=== PATIENT | male | born 1945 | race Caucasian/White ===

== ENCOUNTER 2017-06-03 11:23 | Emergency (ER) | payer OTHER, MEDICARE ==
[~2017-06-03] VITALS: Ht 157.5 cm; Wt 98.0 kg
[~2017-06-03 11:23] MED LIST: ACET-1256 PO; ALL180 PO; ASPI81TA28 PO; CLOP1TAB15 PO; CMD5 PO; CYCL10TA6 PO; ENOX100I SQ; EZET10TA63 PO; LISI-729 PO; METO25TA56 PO; NTRGSLP4 SL; OXYC-57 PO; SIMV40TA2 PO
[2017-06-03 11:26] VITALS: TEMP 36.7; Ht 157.5 cm; Wt 98.0 kg
[2017-06-03] MEDS ORDERED: ONDANSETRON INJ 2 MG/ML 2 ML VIAL IV STA (12:18)
[2017-06-03] MEDS: HYDROmorphone INJ 0.5 MG/0.5 ML SYR IV PRN ×3 (13:00→14:52)
[2017-06-03 13:20] LABS: BASO % 0.1 %; BASO ABS # 0.01 K/uL (0-0.2); EOS % 0.7 %; EOS ABS # 0.05 K/uL (0-0.5); HEMATOCRIT 43.7 % (42-52); HEMOGLOBIN 15.2 g/dL (14.0-18.0); LYMPH % 26.1 %; LYMPH ABS # 1.75 K/uL (1.2-3.4); MEAN CORPUSCULAR HEMOGLOBIN 32.7 pg (25-34); MEAN CORPUSCULAR HGB CONC 34.8 g/dl (32-36); MEAN PLATELET VOLUME 9.9 fL (7.4-10.4); MONO % 8.6 %; MONO ABS # 0.58 K/uL (0.11-0.59); NEUT % 64.5 %; NEUT ABS # 4.32 K/uL (1.4-6.5); PLATELET COUNT 153 K/uL (130-400); RED CELL DISTRIBUTION WIDTH CV 13.5 % (11.5-14.5); RED CELL DISTRIBUTION WIDTH SD 46.1 fL (36.4-46.3); WHITE BLOOD COUNT 6.71 K/uL (4.8-10.8)
[2017-06-03] MEDS ORDERED: INSU1INJ2 SQ (13:32)
[2017-06-03] MEDS ORDERED: NVLGI/PEN SQ ×2 (13:32)
[2017-06-03] MEDS ORDERED: INSDGIPEN SC (13:32)
[2017-06-03] MEDS ORDERED: METF-841 PO (13:32)
[2017-06-03 13:37] LABS: BLOOD UREA NITROGEN 12 mg/dl (7-18); CALCIUM 9.7 mg/dl (8.5-10.1); CARBON DIOXIDE 26 mmol/L (21-32); CREATININE 0.95 mg/dl (0.60-1.40); GLUCOSE 72 mg/dl (70-99); POTASSIUM 3.9 mmol/L (3.5-5.1); SODIUM 137 mmol/L (136-145)
[2017-06-03 13:45] LABS: PTT PATIENT 23.3 SECONDS (21.0-31.0)
--- NOTE | 2017-06-03 18:25 | DIAGNOSTIC IMAGING REPORT ---
MRI OF THE LUMBAR SPINE WITHOUT IV CONTRAST CLINICAL HISTORY: Low back pain. Right lower extremity weakness and numbness. COMPARISON STUDY: Abdominal CT dated 05/22/2014. TECHNIQUE: MRI of the lumbar spine is performed utilizing various T1 and T2-weighted sequences in the axial and sagittal planes. IV contrast was not administered for this examination. The examination is modestly degraded by motion artifact. FINDINGS: Lumbar spine: Marrow signal intensity is heterogeneous. Vertebral body height is maintained throughout the lumbar spine. There is minimal anterolisthesis at L4-L5. Alignment is otherwise preserved. There is no evidence of spondylolysis. No destructive bony lesion is seen. The transverse and spinous processes are intact as imaged. Intervertebral discs: Degenerative disc desiccation is seen throughout the lumbar spine. Mild loss of height is seen at L4-L5. Spinal cord: The visualized spinal cord is normal in morphology and signal intensity. The conus medullaris terminates at L1. The nerve roots of the cauda equina are normal in morphology. L1-L2: Unremarkable. L2-L3: Unremarkable. L3-L4: There is a small posterior disc bulge. This causes mild bilateral subarticular stenosis. The central canal and neural foramina are patent. L4-L5: There is broad-based posterior disc bulge. In conjunction with hypertrophy of the ligamentum flavum there is moderate to severe central canal stenosis at this level. The minimum AP diameter measures 5 mm. There is bilateral subarticular stenosis, with possible impingement on the exiting bilateral L4 and the transiting bilateral L5 nerve roots. L5-S1: There is a small posterior disc bulge. There is no significant acquired compromise of the central canal. Minimal subarticular stenosis is identified. Facet arthropathy causes minimal bilateral neural foraminal stenosis. Sacrum: The visualized sacrum is normal in morphology and signal intensity. Soft tissues: The paraspinous soft tissues are within normal limits. An infrarenal abdominal aortic aneurysm is only partially visualized. This was also seen by CT on 05/22/2014. IMPRESSION: 1. Multilevel lumbosacral spondylosis as above. Disc bulge causes moderate to severe central canal stenosis at L4-L5. See discussion for detailed level by level analysis. 2. No destructive bony process is identified. 3. An infrarenal abdominal aortic aneurysm is partially visualized. This was also seen by CT on 05/22/2014. Dictated: 06/03/2017 6:05 PM Transcribed: 06/03/2017 6:25 PM [email or web address] Electronically signed by: Brijesh Cristina M.D. 06/03/2017 6:28 PM Dictated Date/Time: 06/03/2017 6:05 PM
[2017-06-03] MEDS ORDERED: HYDR-5688 PO (19:12)
[2017-06-03] MEDS ORDERED: NORCO 5/325MG HOME PACK PO ONE (19:15)
[2017-06-03 19:20] VITALS: BP 132/96; PULSE 86; O2SAT 92
--- NOTE | 2017-06-03 21:44 | EMERGENCY ROOM VISIT NOTE ---
History Report prepared by Racheal: Rikki Elise Under the Supervision of: Dr. Bert Perez M.D. First contact with patient: 12:06 Chief Complaint: BACK PAIN Stated Complaint: BACK PAIN History of Present Illness The patient is a 71 year old male who presents to the Emergency Room with complaints of worsening lower right back pain that began 3 days prior to arrival. The patient rates his current pain as a 8/10 in severity and notes that it is disrupting his sleep and ability to walk. He cannot get comfortable laying down, sitting, or standing. The most of his pain is down his right leg and right at the "bottom of his spine." He describes the feeling in his right lower extremity as his leg "being ." He denies any recent falls or traumatic accidents that could have exacerbated the pain. He is not on Coumadin any longer. The patient also denies LOC, headache, fevers, chills, diaphoresis, visual changes, neck pain, chest pain, breathing difficulties, nausea, vomiting , abdominal pain, melena, hematochezia, urinary symptoms, numbness, weakness, lymphadenopathy, rash, or other complaints. He has had MRI imaging before without issue. He has a history of coronary artery disease, diabetes, and deep vein thrombosis. Source of History: patient Onset: 3 days [employer] Position: back (lower) Symptom Intensity: 8/10 Timing: worsening Associated Symptoms: No chest pain, No abdominal pain Note: Right lower extremity Review of Systems See HPI for pertinent positives and negatives. A total of ten systems were reviewed and were otherwise negative. Past Medical & Surgical Medical Problems: (1) AAA (abdominal aortic aneurysm) (2) Dyslipidemia (3) Heart disease (4) HTN (hypertension) (5) SD (myocardial infarction) Surgical Problems: (1) History of heart artery stent (2) multiple cardiac stents Family History Diabetes mellitus Hypertension Social History Smoking Status: Unknown if Ever Smoked Marital Status: Housing Status: lives with significant other Current/Historical Medications Scheduled Aspirin (Aspirin Ec), 81 MG PO QAM Clopidogrel (Plavix), 75 MG PO QAM Fexofenadine HCl (Fexofenadine HCl), 180 MG PO QAM Insulin Aspart (Novolog Flexpen), 6 SQ QAM Insulin Aspart (Novolog Flexpen), 10 SQ 1200 Insulin Aspart (Novolog Penfill), 8 SQ 2300 Insulin Glargine (Lantus Solostar), 18 SC HS Lisinopril (Zestril), 5 MG PO QAM Metformin HCl (Metformin HCl ER), 1 TAB PO BID Metoprolol Tartrate (Lopressor) (Lopressor), 12.5 MG PO BID Nitroglycerin (Nitrostat), 0.4 MG SL PRN Simvastatin (Zocor), 40 MG PO QPM Scheduled PRN Acetaminophen (Tylenol), 1,000 MG PO HS PRN for Pain Hydrocodone/Acetaminophen 5MG/325MG ([place] 5MG/325MG), 1-2 TABS PO Q6H PRN for Pain Allergies Coded Allergies: No Known Allergies (Unverified , 06/03/17) Physical Exam Vital Signs Date Time Temp Pulse Resp B/P (MAP) Pulse Ox O2 Delivery O2 Flow Rate FiO2 06/03/17 19:20 86 18 132/96 92 06/03/17 18:10 62 21 158/81 91 Room Air 06/03/17 16:45 62 18 162/80 91 Room Air 06/03/17 14:30 56 20 119/64 95 Nasal Cannula 2.0 06/03/17 13:33 70 18 140/80 90 Room Air 06/03/17 13:03 72 183/86 91 Room Air 06/03/17 11:26 36.7 78 18 205/83 95 Room Air Physical Exam GENERAL: Awake, alert, well-appearing, in no acute distress HENT: Normocephalic, atraumatic. Oropharynx unremarkable. EYES: Normal conjunctiva. Sclera non-icteric. NECK: Supple. No nuchal rigidity. FROM. No JVD. RESPIRATORY: Clear to auscultation. CARDIAC: Regular rate, normal rhythm. Extremities warm and well perfused. Pulses equal. ABDOMEN: Soft, non-distended. No tenderness to palpation. No rebound or guarding. No masses. RECTAL: Deferred. MUSCULOSKELETAL: There is slight EHL weakness on the right side. Chest examination reveals no tenderness. The back is symmetrical on inspection without obvious abnormality. No joint edema. LOWER EXTREMITIES: Calves are equal size bilaterally and non-tender. No edema. No discoloration. NEURO: Normal sensorium. No sensory or motor deficits noted. There is slight EHL weakness on the right side. No saddle paresthesia. Reflexes were diminished bilaterally. SKIN: No rash or jaundice noted. Medical Decision & Procedures ER Provider Diagnostic Interpretation: Radiology results as stated below per my review and radiologist interpretation: MRI OF THE LUMBAR SPINE WITHOUT IV CONTRAST CLINICAL HISTORY: Low back pain. Right lower extremity weakness and numbness. COMPARISON STUDY: Abdominal CT dated 05/22/2014. TECHNIQUE: MRI of the lumbar spine is performed utilizing various T1 and T2-weighted sequences in the axial and sagittal planes. IV contrast was not administered for this examination. The examination is modestly degraded by motion artifact. FINDINGS: Lumbar spine: Marrow signal intensity is heterogeneous. Vertebral body height is maintained throughout the lumbar spine. There is minimal anterolisthesis at L4-L5. Alignment is otherwise preserved. There is no evidence of spondylolysis. No destructive bony lesion is seen. The transverse and spinous processes are intact as imaged. Intervertebral discs: Degenerative disc desiccation is seen throughout the lumbar spine. Mild loss of height is seen at L4-L5. Spinal cord: The visualized spinal cord is normal in morphology and signal intensity. The conus medullaris terminates at L1. The nerve roots of the cauda equina are normal in morphology. L1-L2: Unremarkable. L2-L3: Unremarkable. L3-L4: There is a small posterior disc bulge. This causes mild bilateral subarticular stenosis. The central canal and neural foramina are patent. L4-L5: There is broad-based posterior disc bulge. In conjunction with hypertrophy of the ligamentum flavum there is moderate to severe central canal stenosis at this level. The minimum AP diameter measures 5 mm. There is bilateral subarticular stenosis, with possible impingement on the exiting bilateral L4 and the transiting bilateral L5 nerve roots. L5-S1: There is a small posterior disc bulge. There is no significant acquired compromise of the central canal. Minimal subarticular stenosis is identified. Facet arthropathy causes minimal bilateral neural foraminal stenosis. Sacrum: The visualized sacrum is normal in morphology and signal intensity. Soft tissues: The paraspinous soft tissues are within normal limits. An infrarenal abdominal aortic aneurysm is only partially visualized. This was also seen by CT on 05/22/2014. IMPRESSION: 1. Multilevel lumbosacral spondylosis as above. Disc bulge causes moderate to severe central canal stenosis at L4-L5. See discussion for detailed level by level analysis. 2. No destructive bony process is identified. 3. An infrarenal abdominal aortic aneurysm is partially visualized. This was also seen by CT on 05/22/2014. Dictated: 06/03/2017 6:05 PM Transcribed: 06/03/2017 6:25 PM [email or web address] Electronically signed by: Brijesh Cristina M.D. 06/03/2017 6:28 PM Dictated Date/Time: 06/03/2017 6:05 PM Laboratory Results 06/03/17 13:00 Red Blood Count 4.65, Mean Corpuscular Volume 94.0, Mean Corpuscular Hemoglobin 32.7, Mean Corpuscular Hemoglobin Concent 34.8, Mean Platelet Volume 9.9, Neutrophils (%) (Auto) 64.5, Lymphocytes (%) (Auto) 26.1, Monocytes (%) (Auto) 8.6, Eosinophils (%) (Auto) 0.7, Basophils (%) (Auto) 0.1, Neutrophils # (Auto) 4.32, Lymphocytes # (Auto) 1.75, Monocytes # (Auto) 0.58, Eosinophils # (Auto) 0.05, Basophils # (Auto) 0.01 06/03/17 13:00 Test 06/03/17 13:00 White Blood Count 6.71 K/uL (4.8-10.8) Red Blood Count 4.65 M/uL (4.7-6.1) Hemoglobin 15.2 g/dL (14.0-18.0) Hematocrit 43.7 % (42-52) Mean Corpuscular Volume 94.0 fL (80-100) Mean Corpuscular Hemoglobin 32.7 pg (25-34) Mean Corpuscular Hemoglobin Concent 34.8 g/dl (32-36) Platelet Count 153 K/uL (130-400) Mean Platelet Volume 9.9 fL (7.4-10.4) Neutrophils (%) (Auto) 64.5 % Lymphocytes (%) (Auto) 26.1 % Monocytes (%) (Auto) 8.6 % Eosinophils (%) (Auto) 0.7 % Basophils (%) (Auto) 0.1 % Neutrophils # (Auto) 4.32 K/uL (1.4-6.5) Lymphocytes # (Auto) 1.75 K/uL (1.2-3.4) Monocytes # (Auto) 0.58 K/uL (0.11-0.59) Eosinophils # (Auto) 0.05 K/uL (0-0.5) Basophils # (Auto) 0.01 K/uL (0-0.2) RDW Standard Deviation 46.1 fL (36.4-46.3) RDW Coefficient of Variation 13.5 % (11.5-14.5) Immature Granulocyte % (Auto) 0.0 % Immature Granulocyte # (Auto) 0.00 K/uL (0.00-0.02) Erythrocyte Sedimentation Rate 26 mm/hr (0-14) Prothrombin Time 10.6 SECONDS (9.0-12.0) Prothromb Time International Ratio 1.0 (0.9-1.1) Activated Partial Thromboplast Time 23.3 SECONDS (21.0-31.0) Partial Thromboplastin Ratio 0.9 Anion Gap 7.0 mmol/L (3-11) Est Creatinine Clear Calc Drug Dose 74.7 ml/min Estimated GFR () 94.3 Estimated GFR (Non- 81.3 BUN/Creatinine Ratio 12.6 (10-20) Calcium Level 9.7 mg/dl (8.5-10.1) C-Reactive Protein < 0.29 mg/dl (0-0.29) Laboratory results reviewed by me Medications Administered Medications (Trade) Dose Ordered Sig/Lucius Route Start Time Stop Time Status Last Admin Dose Admin Hydromorphone HCl (Dilaudid Inj) 0.5 mg Q15M PRN IV 06/03/17 12:30 06/03/17 21:02 DC 06/03/17 14:52 0.5 MG Ondansetron HCl (Zofran Inj) 4 mg NOW STAT IV 06/03/17 12:18 06/03/17 12:20 DC 06/03/17 12:59 4 MG ED Course 1213: The patient was evaluated in room B11B. A complete history and physical exam was performed. 1218: Ordered Zofran 4 mg IV. 1230: Ordered Dilaudid Inj 0.5 mg IV. 1415: I checked on the patient at this time. He is feeling better. 1906: I reevaluated the patient. Discussed results and discharge instructions: He verbalized understanding and agreement. The patient is ready for discharge. 1915: Ordered Hydrocodone 1 homepack PO. Medical Decision Prior records/ancillary studies reviewed. Triage Nursing notes reviewed and agree them. Additional history obtained from the family. The patient's history was concerning for back pain. Differential diagnosis: Etiologies such as herniated disc, sciatica, cauda equina,fracture, aortic disease, metastatic disease, cord compression, discitis, infection, renal colic , gastrointestinal, lumbago, as well as others were entertained. Physical findings: Patient was evaluated. He had a benign abdomen. No saddle anesthesia however he did have weakness on the right side. ER treatment provided: IV Zofran IV Dilaudid On reassessment the patient felt better. Diagnostics interpreted by me: The labs revealed an unremarkable CBC and chemistry panel. ESR is mildly elevated. Imaging studies: MRI as above. Significant disc herniation present. The patient has a concerning medical history. He had a benign abdomen. He did have weakness on the right side. Given his age and comorbidities MR imaging was felt to be most appropriate to elucidate the cause of the patient's radicular back pain. After receiving IV Dilaudid the patient was comfortable. He underwent imaging and this revealed the findings as above. He has a known abdominal aortic aneurysm and has no abdominal symptoms at this time. I do not suspect the aorta is the current cause of his symptoms as they are radicular and not really isolated to the back and there are no abdominal complaints. He' s had this current episode going on for several days. He is finally comfortable. Given the fact that is diabetic steroids would be difficult to use as he would likely experience hyperglycemia. Prescription narcotic analgesia was discussed. Referral to orthopedic spine as well as his primary physician was discussed. The patient was hypertensive at first but this improved after pain control. The patient and his felt comfortable with the plan.I gave my usual and customary discussion regarding this issue. By the evaluation outlined above emergent etiologies such as fracture, aortic disease, metastatic disease, infection, renal colic, gastrointestinal, cord compression, cauda equina, as well as others were deemed relatively unlikely. The patient and were informed about the findings as listed above. All questions were answered and they were pleased with the treatment. Return instructions were outlined and the patient was discharged in stable condition. Outpatient prescription management: [place] Referral: The patient was referred back to primary care physician as well as orthopedic spine. 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 I confirm that the note above accurately reflects all work, treatment, procedures, and medical decision making performed by me. Departure Information Dispostion Home / Self-Care Prescriptions Hydrocodone/Acetaminophen 5MG/325MG ([place] 5MG/325MG) Tab 1-2 TABS PO Q6H Y for Pain, #20 TAB Prov: Bert Perez MD 06/03/17 Forms HOME CARE DOCUMENTATION FORM, IMPORTANT VISIT INFORMATION Patient Instructions [facility] Additional Instructions DO NOT drive, drink alcohol, operate machinery, or perform dangerous activities today. You were given medications in the ER that can affect your ability to safely function or operate a vehicle. Hydrocodone/acetaminophen 5/325mg: Take 1-2 pills every 6 hours as needed for pain. Avoid additional Acetaminophen/Tylenol, alcohol, operating machinery or dangerous equipment, working on ladders or roofs, DRIVING, or situations where being under the influence may be dangerous. It is recommended to use a stool softener such as Colace, 100mg twice daily while taking this medication to avoid constipation. Rest and avoid heavy lifting until your symptoms resolve and then gradually return to full activity. A good rule of thumb is if it hurts your back to perform a certain activity, then it should be avoided until you are healthy again. A heating pad, warm compresses, or a hot shower may help with tight muscles and can be done several times a day as needed. Continue current medications. Return to the ER immediately for any numbness, tingling, severe pain, loss of control of your bowels or bladder, inability to walk, or as needed. Follow-up with orthopedic spine as noted below. The number is listed under Dr. Cage. Call the office tomorrow and let them know your referral from the Emergency Room. Follow up with your primary care physician within 3-5 days for a recheck of your current condition guarding her blood pressure. Problem Qualifiers
== END 2017-06-03 19:15 | disposition home or self-care (01) ==
LOC: C.EDB 11:24
DX: M51.16 Intervertebral disc disorders with radiculopathy, lumbar region (principal); I25.10 Atherosclerotic heart disease of native coronary artery without angina pectoris; E11.9 Type 2 diabetes mellitus without complications; Z86.718 Personal history of other venous thrombosis and embolism; E78.5 Hyperlipidemia, unspecified; I10 Essential (primary) hypertension; I25.2 Old myocardial infarction; Z95.5 Presence of coronary angioplasty implant and graft; Z83.3 Family history of diabetes mellitus; Z82.49 Family history of ischemic heart disease and other diseases of the circulatory system; Z79.82 Long term (current) use of aspirin; Z79.01 Long term (current) use of anticoagulants; Z79.4 Long term (current) use of insulin; Z79.899 Other long term (current) drug therapy; I71.4 Abdominal aortic aneurysm, without rupture

== ENCOUNTER 2021-05-29 13:59 | Observation (INO) ==
[2021-05-29 14:34] LABS: Hematocrit (blood only) 35.6 % (42-52); Hemoglobin 11.9 g/dL (14.0-18.0); Mean Corpuscular Hemoglobin 32.4 pg (25-34); Mean Corpuscular Hgb Conc 33.4 g/dL (32-36); Mean Platelet Volume 9.5 fL (7.4-10.4); Platelet Count 113 K/uL (130-400); RDW Coefficient of Variation 13.6 % (11.5-14.5); RDW Standard Deviation 48.7 fL (36.4-46.3); Red Blood Count 3.67 M/uL (4.7-6.1); White Blood Count 8.87 K/uL (4.8-10.8)
--- NOTE | 2021-05-29 14:44 | CT Scan Report ---
CT SCAN OF THE BRAIN WITHOUT IV CONTRAST CLINICAL HISTORY: Strokelike symptoms. COMPARISON STUDY: No priors. TECHNIQUE: Unenhanced axial CT scan of the brain is performed from the vertex to the skull base. A do se lowering technique was utilized adhering to the principles of ALARA. CT DOSE: 823.94 mGycm FINDINGS: Brain parenchyma: There are age-related involutional changes noting mild subcortical and periventric ular microangiopathic change. There is no hemorrhage, mass effect, or evidence of acute territorial i schemia by CT criteria. Crook-white matter differentiation is preserved. No extra-axial fluid collecti on is seen. Ventricles, sulci, cisterns: Prominent secondary to involutional change. Intracranial vasculature: There is atherosclerotic calcification of the cavernous carotid and vertebr al arteries. Calvarium: Unremarkable. Sinuses and mastoids: There is subtotal opacification of the right sphenoid sinus. The remaining para nasal sinuses are clear. The mastoid air cells are well pneumatized. Orbits: The bony orbits are grossly intact. IMPRESSION: There is no hemorrhage, mass effect, or evidence of acute territorial ischemia by CT erickson palmer. ACT 112: Negative or not required by law. Electronically signed by: Brijesh Cristina M.D. 05/29/2021 2:43 PM
[2021-05-29 15:00] LABS: Albumin Globulin Ratio 1.2 (0.9-2); Albumin Level 3.8 gm/dl (3.4-5.0); BUN Creatinine Ratio 23.7 (10-20); Bilirubin,Total 0.6 mg/dl (0.2-1.0); Calcium 8.4 mg/dl (8.5-10.1); Creatinine Clr Calc Pharmacy 76.4 ml/min; Est GFR (African American) 94.1 ml/min; Est GFR (Non-African American) 81.2 ml/min; Globulin 3.3 gm/dl (2.5-4.0); Magnesium 1.7 mg/dl (1.7-2.4); Potassium 3.9 mmol/L (3.5-5.1); Total Protein 7.1 gm/dl (6.0-8.3)
--- NOTE | 2021-05-29 16:22 | Emergency Department Note ---
Impression & Plan Visual hallucinations, Hypertensive urgency, S/P AAA repair ED Provider Note NAME: MASSIMO RAMOS AGE: 75 SEX: M ARRIVES VIA: Walk-In INFORMANT: Patient ED PROVIDER(S): Tawanda Corrigan MD CHIEF COMPLAINT: Visual hallucinations PLAN: Disposition: Admit MEDICAL DECISION MAKING: The patient is a pleasant 74-year-old gentleman with a past medical history of IDDM 2, hypertension, hyperlipidemia, AAA who is status post AAA repair 2 days ago at [facility] [place] who presents emergency department, by his daughter for evaluation of visual hallucinations which he began experience around 830 this morning. The patient describes the episodes as brief seconds of an injury that occurs when he closes his eyes. The imagery ranges from seeing rabbits running out of the snow to seeing "launch codes". The patient's daughter reports that he is otherwise acting normally and denies any confusion or abnormal behaviors. They deny any history of regular alcohol use. He reports he chews tobacco. They deny any fevers, chills, cough, congestion, GI or symptoms. He reports he has a scheduled stress test approximately 10 days from now which was scheduled by his PCP who is aware of his surgery but the plan was to have this done due to his elevated blood pressure which is chronic. He reports he was unaware of any strict range where he should maintain his blood pressure related to his recent AAA repair. He does report that he takes his medication normally as scheduled and has not missed any doses. On arrival the patient is well-appearing in no acute distress, afebrile. His initial blood pressure on arrival was elevated in the 230s/80s but did decline somewhat to the 190s/90s without intervention. He appears clinically dry. He has no objective focal neurologic deficits. EKG without overt acute ischemia. CT of the head was negative for acute process. WBC within normal limits. H/H 11.9/35.6 and platelets 113K without recent values for comparison. Chemistry without metabolic acidosis. Electrolytes without significant abnormalities. LFTs without significant abnormalities. UA without convincing evidence of infection. Given the patient's neurologic symptoms of visual hallucinations the setting of his recent AAA repair, CVA is within the differential. Additionally, given the patient's elevated blood pressure, hypertensive encephalopathy is also considered. The patient and his daughter at the bedside did agree with plan for admission given his symptoms and possible etiology. MRI of the brain with and without contrast was ordered. Given Stroke on DDX will defer acute BP management pending MRI results, per admitting team. Resident, Dr. Luis, reviewed the case with Case was discussed with Gatito Humphrey, with Dr. Erum hogue hospitalist who will evaluate the patient for admission. This patient was managed with the assistance of resident, Dr. Luis. I discussed the case with the resident, examined the patient, and confirm the findings and plan as documented in this note. Triage Nursing notes reviewed and agree them. Prior medical records reviewed Vital Signs: reviewed and remarkable for hypertension. Differential diagnosis: Infection, dehydration, metabolic abnormality, hypo/hyperglycemia, electrolyte disturbance, anemia, hypoxia, cardiac sources, intracerebral event, toxicologic, neurologic, as well as other pathologies. ER treatment provided: See below. Diagnostics interpreted by me: ECG: Sinus rhythm with first-degree AV block, 68 bpm, no ectopy, incomplete right bundle branch block, no overt ST elevation or depression, QTC 416, QRS 94. Cardiac Monitoring: An order for continuous cardiac monitoring was placed and demonstrated sinus rhythm with first-degree AV block, 68 bpm, no ectopy Laboratory studies: See below Imaging studies: See below Consultation(s): Gatito Humphrey, with Dr. Erum Mederos hospitalist. HPI: The patient is a pleasant 74-year-old gentleman with a past medical history of IDDM 2, hypertension, hyperlipidemia, AAA who is status post AAA repair 2 day s ago at [facility] [place] who presents emergency department, by his daughter for evaluation of visual hallucinations which he began experience around 830 this morning. The patient describes the episodes as brief seconds of an injury that occurs when he closes his eyes. The imagery ranges from seeing rabbits running out of the snow to seeing "launch codes". The patient's daughter reports that he is otherwise acting normally and denies any confusion or abnormal behaviors. They deny any history of regular alcohol use. He reports he chews tobacco. They deny any fevers, chills, cough, congestion, GI or symptoms. He reports he has a scheduled stress test approximately 10 days from now which was scheduled by his PCP who is aware of his surgery but the plan was to have this done due to his elevated blood pressure which is chronic. He reports he was unaware of any strict range where he should maintain his blood pressure related to his recent AAA repair. He does report that he takes his medication normally as scheduled and has not missed any doses. ROS: See above HPI for pertinent positives & negatives. A total of 10 systems reviewed and were otherwise negative. PAST MEDICAL HISTORY:See Below PAST SURGICAL HISTORY:See Below FAMILY HISTORY:See Below SOCIAL HISTORY:See Below HOME MEDICATIONS:See Below ALLERGIES:See Below VITALS:See Below PHYSICAL EXAMINATION: GENERAL: Awake, alert, well-appearing, in no distress, BMI 43.9. HENT: Normocephalic, atraumatic. Oropharynx with dry mucous membranes and otherwise unremarkable. EYES: Normal conjunctiva. Sclera non-icteric. EOMI. No nystamgus. PEARRL. NECK: Supple. No nuchal rigidity. FROM. No JVD. RESPIRATORY: Clear to auscultation. CARDIAC: Regular rate, normal rhythm. Extremities warm and well perfused. Pulses equal. ABDOMEN: Soft, non-distended. No tenderness to palpation. No rebound or guarding. No masses. RECTAL: Deferred. MUSCULOSKELETAL: Chest examination reveals no tenderness. The back is sy mmetrical on inspection without obvious abnormality. There is no CVA tenderness to palpation. No joint edema. LOWER EXTREMITIES: Calves are equal size bilaterally and non-tender. No edema. No discoloration. NEURO: Normal sensorium. No sensory or motor deficits noted. Speech is fluent. CNII-XII grossly intact. 5/5 strength and SILT x 4 extremities. Cerebellar function intact including [id number], alternating palms, [id number]. SKIN: No rash or jaundice noted. Tawanda Corrigan MD Past Med/Surg History Medical History AAA (abdominal aortic aneurysm) Carotid stenosis Dyslipidemia History of pulmonary embolism HTN (hypertension) NM (myocardial infarction) PAD (peripheral artery disease) Pneumoconiosis Pulmonary embolism Pulmonary nodule seen on imaging study Silicosis Type 2 diabetes mellitus Surgical History History of AAA (abdominal aortic aneurysm) repair Repair in 2017 with subsequent type 2 endoleak that was repaired in May 2021 History of cardiac cath 2009 - stents History of carotid endarterectomy History of heart artery stent Family History Other Cancer Diabetes Heart disease Stroke Social History Smoking Status: Former smoker Tobacco Type: Cigarettes Second Hand Exposure: No; Do You Dip or Chew Tobacco: Yes; Tobacco Cessation Education Requested by Patient: No Hx Alcohol Use: No Hx Substance Use: No Preferred Language: Bolivian Communication Ability: Effective Narcotics And/Or Vice Detective Required: No Beliefs That Will Affect Care: None marital status: Current Living Situation: Spouse Other Information That Helps Us Care for You: No Feels Safe at Home: Yes Safety Concerns: Feels Safe At This Time Assistive Devices: Hearing Aid - Bilateral Allergies Allergies Allergy/AdvReac Type Severity Reaction Status Date / Time pollen extracts Allergy Unknown Verified 05/29/21 16:12 sitagliptin Allergy Unknown Verified 05/29/21 16:12 Home Meds Home Medications Medication Instructions Recorded Confirmed aspirin 81 mg tablet,delayed 81 mg PO DAILY 07/14/19 05/29/21 release atorvastatin 40 mg tablet (Lipitor) 40 mg PO DAILY 07/14/19 05/29/21 clopidogrel 75 mg tablet (Plavix) 75 mg PO DAILY 07/14/19 05/29/21 fexofenadine 180 mg tablet 180 mg PO QAM PRN 07/14/19 05/29/21 (Eugenia Allergy) insulin aspart U-100 100 unit/mL 11 unit SUBCUT QDB 07/14/19 05/29/21 (3 mL) subcutaneous pen (Novolog Flexpen U-100 Insulin aspart) insulin aspart U-100 100 unit/mL 14 unit SUBCUT QDD 07/14/19 05/29/21 (3 mL) subcutaneous pen (Novolog Flexpen U-100 Insulin aspart) insulin aspart U-100 100 unit/mL 20 unit SUBCUT QDL 07/14/19 05/29/21 (3 mL) subcutaneous pen (Novolog Flexpen U-100 Insulin aspart) insulin glargine 100 unit/mL (3 35 unit SUBCUT HS 07/14/19 05/29/21 mL) subcutaneous pen (Basaglar KwikPen U-100 Insulin) metoprolol tartrate 25 mg tablet 12.5 mg PO BID 07/14/19 05/29/21 nitroglycerin 0.4 mg sublingual 0.4 mg SUBLINGUAL Q5M PRN MDD 1.2 07/14/19 05/29/21 tablet (Nitrostat) mg hydrochlorothiazide 12.5 mg capsule 12.5 mg PO DAILY 05/29/21 05/29/21 lisinopril 40 mg tablet 40 mg PO DAILY 05/29/21 05/29/21 metformin 1,000 mg tablet 1,000 mg PO BID 05/29/21 05/29/21 Results & Data (ED) Vital Signs Vital Signs - 24 hr 05/29/21 14:01 05/29/21 15:55 05/29/21 15:58 Temperature 36.5 C Temperature Source Temporal Artery Scan Pulse Rate 73 Pulse Rate [Apical] 68 Pulse Rhythm [Apical] Respiratory Rate 18 18 Respiratory Effort / Characteristics Non-Labored Non-Labored Respiratory Depth Normal Blood Pressure 236/85 H Blood Pressure [Left Arm] 170/71 H Blood Pressure Mean 135 Blood Pressure Mean [Left Arm] 104 Pulse Oximetry 93 94 93 Oxygen Delivery Method Room Air Room Air Room Air Oxygen Flow Rate 0 Sepsis Recent Fever Within 48 Hours No Sepsis New/Unexplained Change in Mental Status No Sepsis Action Taken by Nursing No Action Required 05/29/21 17:00 Temperature Temperature Source Pulse Rate Pulse Rate [Apical] 67 Pulse Rhythm [Apical] Regular Respiratory Rate 26 H Respiratory Effort / Characteristics Non-Labored Respiratory Depth Blood Pressure Blood Pressure [Left Arm] 194/90 H Blood Pressure Mean Blood Pressure Mean [Left Arm] 124 Pulse Oximetry 94 Oxygen Delivery Method Room Air Oxygen Flow Rate Sepsis Recent Fever Within 48 Hours Sepsis New/Unexplained Change in Mental Status Sepsis Action Taken by Nursing Laboratory Data Attestation: I reviewed the patient's lab results. Result diagrams: 05/29/21 14:20 05/29/21 14:20 Lab Results 05/29/21 05/29/21 05/29/21 Range/Units 14:20 14:20 14:20 WBC 8.87 (4.8-10.8) K/uL RBC 3.67 L (4.7-6.1) M/uL Hgb 11.9 L (14.0-18.0) g/dL Hct 35.6 L (42-52) % MCV 97.0 (80-100) fL MCH 32.4 (25-34) pg MCHC 33.4 (32-36) g/dL RDW Std Deviation 48.7 H (36.4-46.3) fL RDW Coeff of Humberto 13.6 (11.5-14.5) % Plt Count 113 L (130-400) K/uL MPV 9.5 (7.4-10.4) fL PT Cancelled INR Cancelled APTT Cancelled PTT Ratio Cancelled Sodium 131 L (136-145) mmol/L Potassium 3.9 (3.5-5.1) mmol/L Chloride 99 (98-107) mmol/L Carbon Dioxide 24 (21-32) mmol/L Anion Gap 8 (3-11) BUN 22 (6-23) mg/dl Creatinine 0.93 (0.6-1.4) mg/dl Est Cr Clr Drug Dosing 76.4 ml/min Est GFR ( Amer) 94.1 ml/min Est GFR (Non-Af Amer) 81.2 ml/min BUN/Creatinine Ratio 23.7 H (10-20) Glucose 161 H (70-99) mg/dl POC Glucose (70-99) mg/dl Calcium 8.4 L (8.5-10.1) mg/dl Magnesium 1.7 (1.7-2.4) mg/dl Total Bilirubin 0.6 (0.2-1.0) mg/dl AST 44 H (13-39) U/L ALT 31 (7-52) U/L Alkaline Phosphatase 99 (34-104) U/L Total Protein 7.1 (6.0-8.3) gm/dl Albumin 3.8 (3.4-5.0) gm/dl Globulin 3.3 (2.5-4.0) gm/dl Albumin/Globulin Ratio 1.2 (0.9-2) Urine Color Urine Appearance (Clear) Urine pH (4.5-7.5) Ur Specific [place] (1.000-1.030) Urine Protein (Negative) Urine Glucose (UA) (Negative) Urine Ketones (Negative) Urine Blood (Negative) Urine Nitrite (Negative) Urine Bilirubin (Negative) Urine Urobilinogen (Negative) Ur Leukocyte Esterase (Negative) Urine WBC (Auto) (0-5) /hpf Urine RBC (Auto) (0-4) /hpf U Hyaline Cast (Auto) (0-5) /lpf U Epithel Cells (Auto) (0-5) /lpf Urine Bacteria (Auto) (Negative) 05/29/21 05/29/21 Range/Units 16:03 17:07 WBC (4.8-10.8) K/uL RBC (4.7-6.1) M/uL Hgb (14.0-18.0) g/dL Hct (42-52) % MCV (80-100) fL MCH (25-34) pg MCHC (32-36) g/dL RDW Std Deviation (36.4-46.3) fL RDW Coeff of Humberto (11.5-14.5) % Plt Count (130-400) K/uL MPV (7.4-10.4) fL PT INR APTT PTT Ratio Sodium (136-145) mmol/L Potassium (3.5-5.1) mmol/L Chloride (98-107) mmol/L Carbon Dioxide (21-32) mmol/L Anion Gap (3-11) BUN (6-23) mg/dl Creatinine (0.6-1.4) mg/dl Est Cr Clr Drug Dosing ml/min Est GFR ( Amer) ml/min Est GFR (Non-Af Amer) ml/min BUN/Creatinine Ratio (10-20) Glucose (70-99) mg/dl POC Glucose 149 H (70-99) mg/dl Calcium (8.5-10.1) mg/dl Magnesium (1.7-2.4) mg/dl Total Bilirubin (0.2-1.0) mg/dl AST (13-39) U/L ALT (7-52) U/L Alkaline Phosphatase (34-104) U/L Total Protein (6.0-8.3) gm/dl Albumin (3.4-5.0) gm/dl Globulin (2.5-4.0) gm/dl Albumin/Globulin Ratio (0.9-2) Urine Color Yellow Urine Appearance Clear (Clear) Urine pH 7.0 (4.5-7.5) Ur Specific [place] 1.006 (1.000-1.030) Urine Protein Trace H (Negative) Urine Glucose (UA) Negative (Negative) Urine Ketones Negative (Negative) Urine Blood 1+ H (Negative) Urine Nitrite Negative (Negative) Urine Bilirubin Negative (Negative) Urine Urobilinogen Negative (Negative) Ur Leukocyte Esterase Negative (Negative) Urine WBC (Auto) 1-5 (0-5) /hpf Urine RBC (Auto) 0-4 (0-4) /hpf U Hyaline Cast (Auto) 0 (0-5) /lpf U Epithel Cells (Auto) 5-10 H (0-5) /lpf Urine Bacteria (Auto) Negative (Negative) Administered Medications Acetaminophen (Acetaminophen 500 Mg Tab) 1,000 mg PO Q6H PRN PRN Reason: Pain Stop: 06/28/21 18:21 Last Admin: 05/30/21 03:53 Dose: 1,000 mg Documented by: [id number] Admin: 05/29/21 19:25 Dose: 1,000 mg Documented by: [id number] Insulin Aspart (Insulin Aspart Per Unit) 0 units SC ACHS DESEAN Stop: 06/28/21 20:59 Last Admin: 05/29/21 22:03 Dose: Not Given Documented by: [id number] Cosigned by: [id number] Insulin Glargine (Insulin Glargine Solostar 100 Units/Ml 3 Ml Pen) 25 units SC HS DESEAN Stop: 06/28/21 20:59 Last Admin: 05/29/21 21:43 Dose: 25 units Documented by: [id number] Cosigned by: [id number] Metoprolol Tartrate (Metoprolol Tartrate 25 Mg Tab) 12.5 mg PO BID DESEAN Stop: 06/28/21 20:59 Last Admin: 05/29/21 21:38 Dose: 12.5 mg Documented by: [id number] Discontinued Medications Gadobutrol (Gadobutrol 65ml Vial) 10.5 ml IV ONCE ONE Stop: 05/29/21 18:52 Last Admin: 05/29/21 18:51 Dose: 10.5 ml Documented by: [id number] Hydrochlorothiazide (Hydrochlorothiazide 25 Mg Tab) 12.5 mg PO NOW STA Stop: 05/29/21 19:27 Last Admin: 05/29/21 19:33 Dose: 12.5 mg Documented by: [id number] Sodium Chloride (Nss) 500 mls @ 125 mls/hr IV .Q4H ONE Stop: 05/29/21 21:20 Last Infusion: 05/29/21 22:02 Dose: 0 mls/hr Documented by: [id number] Admin: 05/29/21 17:27 Dose: 125 mls/hr Documented by: [id number] Labetalol HCl (Labetalol Hcl Iv 5 Mg/Ml 20ml) 10 mg IV NOW STA Stop: 05/29/21 19:48 Last Admin: 05/29/21 21:01 Dose: Not Given Documented by: [id number] Labetalol HCl (Labetalol Hcl Iv 5 Mg/Ml 20ml) 10 mg IV NOW STA Stop: 05/29/21 19:50 Last Admin: 05/29/21 20:13 Dose: 10 mg Documented by: [id number] Cosigned by: [id number] Imaging Data Radiologist's Impression: Brain MRI 05/29/21 16:34 MRI OF THE BRAIN COMBO CLINICAL HISTORY: Visual changes. Recent surgery. COMPARISON STUDY: CT of the brain dated 05/29/2021. TECHNIQUE: MRI of the brain was performed utilizing various T1 and T2-weighted sequences in the axial, sagittal, and coronal planes. Contrast-enhanced sequences were acquired following the administration of 10.5 cc of Gadavist. The examination is modestly degraded by motion artifact. FINDINGS: Brain parenchyma: There is age-related involutional change noting minimal microangiopathic disease. There is no hemorrhage or mass effect. There is no restricted diffusion to suggest acute ischemia. No enhancing mass lesion is identified on the postcontrast images. Crook-white matter differentiation is preserved. No extra-axial fluid collection is seen. The cerebellar tonsils are normal in configuration. Ventricles, sulci, and cisterns: Prominent secondary to involutional change. Pituitary and sella: Partially empty sella is incidentally noted. Intracranial vasculature: Normal flow voids are maintained at the skull base. Orbits: The bony orbits are grossly intact. Orbital contents are normal in appearance. Sinuses and mastoids: There is mucosal thickening within the right sphenoid sinus. The remaining paranasal sinuses appear clear. The mastoid air cells are well pneumatized. Calvarium: Unremarkable. Cervical cord: Partially visualized cervical spinal cord is normal in morphology and signal intensity. IMPRESSION: No acute intracranial abnormality. ACT 112: Negative or not required by law. Electronically signed by: Brijesh Cristina M.D. 05/29/2021 7:08 PM Discharge Plan Visit Data Chief Complaint: Neuro Symptoms/Deficit Stated Complaint: POST SURGERY, SEEING THINGS WHEN EYES ARE CLOSED ED Provider: Tawanda Corrigan ED Midlevel Provider: Tracee Luis Discharge Problem: Visual hallucinations, Hypertensive urgency, S/P AAA repair Patient Disposition: Admitted As Inpatient Discharge Instructions Interventions: ED Discharge Assessment Last Done: 05/29/21 20:46
--- NOTE | 2021-05-29 16:56 | Emergency Department Note ---
ED Visit Note This patient was seen in concert with Dr. Corrigan and we discussed and agreed upon the history, physical, assessment and plan. See attending's note for details. . Resident Activity Tracking Resident Involvement: Resident Care Provided Care Provided: Adult ED
[2021-05-29] MEDS ORDERED: SODIUM CHLORIDE 0.9% 500 ML IV ONE (17:21)
[2021-05-29 17:24] LABS: Appearance Urine Clear (Clear); Bacteria Urine Automated Negative (Negative); Bilirubin Urine Negative (Negative); Blood Urine 1+ (Negative); Cast Urine Automated 0 /lpf (0-5); Color Urine Yellow; Glucose Urine UA Negative (Negative); Ketones Urine Negative (Negative); Leukocyte Esterase Urine Negative (Negative); Nitrite Urine Negative (Negative); Protein Urine Trace (Negative); RBC Urine Automated 0-4 /hpf (0-4); Specific Gravity Urine 1.006 (1.000-1.030); Urobilinogen Urine Negative (Negative)
--- NOTE | 2021-05-29 17:34 | XRay Report ---
SINGLE VIEW CHEST CLINICAL HISTORY: Visual changes. Recent surgery. FINDINGS: 2 AP, portable, semierect chest radiographs are compared to study dated 07/14/2019 and corre lated with chest CT dated 08/19/2015. The examination is degraded by portable technique and apical lord otic positioning. The heart is enlarged noting atherosclerotic calcification of the thoracic aorta. The pulmonary vasculature is noncongested. Chronic interstitial thickening is similar to previous. Mi liary calcified pulmonary nodules are unchanged. No airspace consolidation or large pleural effusion is identified. Scarring/atelectasis is seen at the lung bases. No pneumothorax is identified. The ske letal structures are osteopenic. The bony thorax is grossly intact. IMPRESSION: Cardiomegaly and chronic parenchymal changes as above with no acute cardiopulmonary abnor mality. ACT 112: Negative or not required by law. Electronically signed by: Brijesh Cristina M.D. 05/29/2021 5:33 PM
--- NOTE | 2021-05-29 17:51 | History & Physical Report ---
Date of Service May 29, 2021 Assessment & Plan (1) Visual hallucinations: Plan: Unclear etiology - differential includes CVA, HTN encephalopathy, and acute psychosis though thought less likely. Recent general anesthesia for endoleak repair so may be a residual effect but again, less likely two days post- procedure. No other med changes that pt can recall. Elevated BPs at home for the past three months. - Admit for additional work-up - monitor on telemetry - Neuro checks - MRI brain - Check ECHO - Consult neurology for additional recommendations (2) Hypertensive urgency: Plan: BP markedly elevated on presentation to the ED at 236/85 - pt denies missing BP meds today. - Continue meds from home - IV hydralazine PRN to keep SBP <160 due to recent AAA repair - Increase HCTZ to 25 mg daily, first dose of 12.5 mg tonight. Continue same Lisinopril and Lopressor (3) Carotid stenosis: Plan: s/p right CEA. Most recent carotid duplex in May 2020 showed less than 50% stenosis of right ICA, 50-69% stenosis of left ICA. - Check carotid doppler to evaluate for progressive disease (4) HTN (hypertension): (5) Heart disease: (6) Type 2 diabetes mellitus: Plan: A1c on 05/26/21 was 9.0 - Diabetic diet - Continue HS Lantus but will decrease to 25 units tonight because of poor oral intake since procedure - Insulin sliding scale and accuchecks (7) Dyslipidemia: Plan: - Lipid panel in AM (8) PAD (peripheral artery disease): Plan: - Continue anti-platelets (ASA/Plavix) (9) S/P AAA repair: Plan: Pt seen and reviewed with attending physician, Dr. Danielson. Plan of care discussed and as outlined above. DVT Prophylaxis: SCDs due to recent AAA endoleak repair Code Status: Full code but pt states he does not want any invasive surgical procedures. Ivan Castro PA-C History of Present Illness Chief Complaint: Visual Changes Primary Care Provider: Bautista Jennings MD This is a 75 y/o male with a PMH of insulin-requiring DM2, prior PE, CAD w/ prior ND and multiple cardiac stents, AAA s/p repair, dyslipidemia, carotid stenosis s/p CEA, silicosis, pneumoconiosis, PAD, and other medical hx as below who presented to the ED today with new-onset visual changes. On Wednesday (two days ago), pt underwent endoleak repair of previously repaired AAA. Per pt, procedure went well without complications. He was observed overnight and went home yesterday afternoon. He reports napping from 4-11 pm yesterday, got up and took two Tylenol, then went back to bed and slept until 8 am this morning. Shortly after he got up, he noticed when he closed his eyes for a moment that he saw pictures of random things moving across his visions. When he opened his eyes, they were gone. He tried to distract himself by playing on his tablet for an hour, but these symptoms persisted. He describes pictures flashing across his rajput of vision from rabbits jumping in the snow to a load of lumber to nuclear codes, etc. moving across his field of vision. These visual changes only happen when he closes his eyes and resolve immediately upon opening them. He denies any other visual changes - no blurry vision or diplopia, no eye pain, no eye drainage. Last eye exam was two years ago. He denies history of glaucoma. 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 He also notes that his BP has been elevated for the past three months from a systolic in the 140s to the 170s. 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 He denies chest pain or pressure, MORENO, dizziness, SOB, syncope. He has never had a stroke before that he is aware of. He denies any similar symptoms previously. Allergies Allergy/AdvReac Type Severity Reaction Status Date / Time pollen extracts Allergy Unknown Verified 05/29/21 16:12 sitagliptin Allergy Unknown Verified 05/29/21 16:12 Home Medications Medication Instructions Recorded Confirmed Type aspirin 81 mg tablet,delayed 81 mg PO DAILY 07/14/19 05/29/21 History release atorvastatin 40 mg tablet (Lipitor) 40 mg PO DAILY 07/14/19 05/29/21 History clopidogrel 75 mg tablet (Plavix) 75 mg PO DAILY 07/14/19 05/29/21 History fexofenadine 180 mg tablet 180 mg PO QAM PRN 07/14/19 05/29/21 History ([place]ugenia Allergy) insulin aspart U-100 100 unit/mL 11 unit SUBCUT QDB 07/14/19 05/29/21 History (3 mL) subcutaneous pen (Novolog Flexpen U-100 Insulin aspart) insulin aspart U-100 100 unit/mL 14 unit SUBCUT QDD 07/14/19 05/29/21 History (3 mL) subcutaneous pen (Novolog Flexpen U-100 Insulin aspart) insulin aspart U-100 100 unit/mL 20 unit SUBCUT QDL 07/14/19 05/29/21 History (3 mL) subcutaneous pen (Novolog Flexpen U-100 Insulin aspart) insulin glargine 100 unit/mL (3 35 unit SUBCUT HS 07/14/19 05/29/21 History mL) subcutaneous pen (Basaglar KwikPen U-100 Insulin) metoprolol tartrate 25 mg tablet 12.5 mg PO BID 07/14/19 05/29/21 History nitroglycerin 0.4 mg sublingual 0.4 mg SUBLINGUAL Q5M PRN MDD 1.2 07/14/19 05/29/21 History tablet (Nitrostat) mg hydrochlorothiazide 12.5 mg capsule 12.5 mg PO DAILY 05/29/21 05/29/21 History lisinopril 40 mg tablet 40 mg PO DAILY 05/29/21 05/29/21 History metformin 1,000 mg tablet 1,000 mg PO BID 05/29/21 05/29/21 History Past Med/Surg History Medical History (Updated 05/29/21 @ 19:01 by Aileen Castro PA-C) AAA (abdominal aortic aneurysm) Carotid stenosis Dyslipidemia History of pulmonary embolism HTN (hypertension) ND (myocardial infarction) PAD (peripheral artery disease) Pneumoconiosis Pulmonary embolism Pulmonary nodule seen on imaging study Silicosis Type 2 diabetes mellitus Surgical History History of AAA (abdominal aortic aneurysm) repair Repair in 2017 with subsequent type 2 endoleak that was repaired in May 2021 History of cardiac cath 2009 - stents History of carotid endarterectomy History of heart artery stent Family History (Updated 05/29/21 @ 18:45 by Aileen Castro PA-C) Other Cancer Diabetes Heart disease Stroke Social History (Updated 05/29/21 @ 18:45 by Aileen Castro PA-C) Smoking Status: Former smoker Tobacco Type: Cigarettes Hx Alcohol Use: No Hx Substance Use: No Preferred Language: Slovak marital status: Current Living Situation: Spouse Feels Safe at Home: Yes Review of Systems Review of Systems: All systems reviewed & are unremarkable except as noted in HPI & below Constitutional: + anorexia; no fever, no chills and no fatigue Eyes: as per Subjective / HPI and + corrective lenses; no diplopia, no discharge and no eye pain Ear, Nose, Mouth, Throat: no nasal congestion, no sore throat and no dysphagia Respiratory: no cough, no chest congestion, no dyspnea and no pain on inspiration Cardiovascular: no chest pain, no palpitations, no syncope and no edema Gastrointestinal: no abdominal pain, no nausea, no vomiting, no diarrhea/loose stools and no blood in stools Genitourinary: + urinary frequency; no dysuria or no hematuria Musculoskeletal: + back pain; no myalgia and no muscle weakness Integumentary: no rash and no yellowing of the skin Neurologic: as per Subjective / HPI; no localized weakness, no generalized weakness, no paralysis, no tingling, no numbness, no paresthesia, no seizure- like activity, no dizziness, no syncope, no headache(s) and no abnormal speech Psychiatric: no depression and no anxiety Physical Exam Constitutional: well developed and well nourished; no acute distress Eyes: PERRL, conjunctivae normal, anicteric sclerae EOM intact bilaterally; no nystagmus Neck: trachea midline Respiratory: no respiratory distress and no labored breathing Auscultation: lungs clear to auscultation bilaterally; no rales, no rhonchi and no wheezes Cardiovascular: Rate/Rhythm: regular rate and regular rhythm Heart Sounds: + murmur Vessels: + carotid bruit (faint on left, none on right), dorsalis pedis pulses present and radial pulses present Extremities: no calf tendern ess and no pedal edema Gastrointestinal (Abdomen): Inspection/Auscultation: normal bowel sounds; abdomen not distended Percussion/Palpation: abdomen soft; abdomen nontender Musculoskeletal: Head/Neck/Chest: normocephalic, head atraumatic and neck supple Gait: normal gait (walking around the room) UE strength 5/5 and equal Skin: + ecchymosis (a few small areas of ecchymosis noted on arms); no jaundice Neurologic: moves all extremities; no focal motor deficits Speech / Cognition: normal speech Motor/Sensory: no tremor and no fasciculations Cranial Nerves: PERRL, normal accommodation, EOM intact bilaterally, able to rotate head bilaterally and able to elevate shoulders bilaterally Psychiatric: A+Ox3, euthymic affect Results & Data Results & Data ([facility]) Vital Signs (Past 12 Hours) Vital Signs Temp Pulse Pulse Resp BP BP Pulse Ox 05/29/21 17:00 67 26 H 194/90 H 94 05/29/21 15:58 93 05/29/21 15:55 68 18 170/71 H 94 05/29/21 14:01 36.5 C 73 18 236/85 H 93 Laboratory Results Laboratory Results - last 24 hr 05/29/21 05/29/21 05/29/21 14:20 14:20 14:20 WBC 8.87 RBC 3.67 L Hgb 11.9 L Hct 35.6 L MCV 97.0 MCH 32.4 MCHC 33.4 RDW Std Deviation 48.7 H RDW Coeff of Humberto 13.6 Plt Count 113 L MPV 9.5 PT Cancelled INR Cancelled APTT Cancelled PTT Ratio Cancelled Sodium 131 L Potassium 3.9 Chloride 99 Carbon Dioxide 24 Anion Gap 8 BUN 22 Creatinine 0.93 Est Cr Clr Drug Dosing 76.4 Est GFR ( Amer) 94.1 Est GFR (Non-Af Amer) 81.2 BUN/Creatinine Ratio 23.7 H Glucose 161 H POC Glucose Calcium 8.4 L Magnesium 1.7 Total Bilirubin 0.6 AST 44 H ALT 31 Alkaline Phosphatase 99 Total Protein 7.1 Albumin 3.8 Globulin 3.3 Albumin/Globulin Ratio 1.2 Urine Color Urine Appearance Urine pH Ur Specific [place] Urine Protein Urine Glucose (UA) Urine Ketones Urine Blood Urine Nitrite Urine Bilirubin Urine Urobilinogen Ur Leukocyte Esterase Urine WBC (Auto) Urine RBC (Auto) U Hyaline Cast (Auto) U Epithel Cells (Auto) Urine Bacteria (Auto) 05/29/21 05/29/21 16:03 17:07 WBC RBC Hgb Hct MCV MCH MCHC RDW Std Deviation RDW Coeff of Humberto Plt Count MPV PT INR APTT PTT Ratio Sodium Potassium Chloride Carbon Dioxide Anion Gap BUN Creatinine Est Cr Clr Drug Dosing Est GFR ( Amer) Est GFR (Non-Af Amer) BUN/Creatinine Ratio Glucose POC Glucose 149 H Calcium Magnesium Total Bilirubin AST ALT Alkaline Phosphatase Total Protein Albumin Globulin Albumin/Globulin Ratio Urine Color Yellow Urine Appearance Clear Urine pH 7.0 Ur Specific [place] 1.006 Urine Protein Trace H Urine Glucose (UA) Negative Urine Ketones Negative Urine Blood 1+ H Urine Nitrite Negative Urine Bilirubin Negative Urine Urobilinogen Negative Ur Leukocyte Esterase Negative Urine WBC (Auto) 1-5 Urine RBC (Auto) 0-4 U Hyaline Cast (Auto) 0 U Epithel Cells (Auto) 5-10 H Urine Bacteria (Auto) Negative Diagnostic Findings Chest X-ray 05/29/21 - IMPRESSION: Cardiomegaly and chronic parenchymal changes as above with no acute cardiopulmonary abnormality. CT Head 05/29/21 - IMPRESSION: There is no hemorrhage, mass effect, or evidence of acute territorial ischemia by CT criteria. Medications Administered Sodium Chloride (Nss) 500 mls @ 125 mls/hr IV .Q4H ONE Stop: 05/29/21 21:20 Last Admin: 05/29/21 17:27 Dose: 125 mls/hr Documented by: [id number] (1) HTN (hypertension) Hypertension type: essential hypertension Qualified Code(s): I10 - Essential (primary) hypertension
--- NOTE | 2021-05-29 18:28 | Electrocardiogram Report ---
Test Reason : Blood Pressure : / mmHG Vent. Rate : 068 BPM Atrial Rate : 068 BPM P-R Int : 216 ms QRS Dur : 094 ms QT Int : 392 ms P-R-T Axes : 061 000 059 degrees QTc Int : 416 ms Sinus rhythm with 1st degree A-V block Incomplete right bundle branch block Otherwise normal ECG When compared with ECG of 14-JUL-2019 16:50, No significant change was found Confirmed by Willie Carrera ([id number]) on 05/29/2021 6:27:55 PM Referred By: Confirmed By:Willie Carrera
[2021-05-29] MEDS ORDERED: GADOBUTROL 65ML VIAL IV ONE (18:51)
--- NOTE | 2021-05-29 19:10 | Magnetic Resonance Report ---
MRI OF THE BRAIN COMBO CLINICAL HISTORY: Visual changes. Recent surgery. COMPARISON STUDY: CT of the brain dated 05/29/2021. TECHNIQUE: MRI of the brain was performed utilizing various T1 and T2-weighted sequences in the axial , sagittal, and coronal planes. Contrast-enhanced sequences were acquired following the administratio n of 10.5 cc of Gadavist. The examination is modestly degraded by motion artifact. FINDINGS: Brain parenchyma: There is age-related involutional change noting minimal microangiopathic disease. T here is no hemorrhage or mass effect. There is no restricted diffusion to suggest acute ischemia. No enhancing mass lesion is identified on the postcontrast images. Crook-white matter differentiation is preserved. No extra-axial fluid collection is seen. The cerebellar tonsils are normal in configuratio n. Ventricles, sulci, and cisterns: Prominent secondary to involutional change. Pituitary and sella: Partially empty sella is incidentally noted. Intracranial vasculature: Normal flow voids are maintained at the skull base. Orbits: The bony orbits are grossly intact. Orbital contents are normal in appearance. Sinuses and mastoids: There is mucosal thickening within the right sphenoid sinus. The remaining para nasal sinuses appear clear. The mastoid air cells are well pneumatized. Calvarium: Unremarkable. Cervical cord: Partially visualized cervical spinal cord is normal in morphology and signal intensity . IMPRESSION: No acute intracranial abnormality. ACT 112: Negative or not required by law. Electronically signed by: Brjiesh Cristina M.D. 05/29/2021 7:08 PM
[2021-05-29] MEDS: ACETAMINOPHEN 500 MG TAB PO PRN (19:25)
[2021-05-29] MEDS ORDERED: hydroCHLOROthiazide 25 MG TAB PO STA (19:26)
[2021-05-29] MEDS ORDERED: LABETALOL HCL IV 5 MG/ML 20ML IV STA ×2 (19:47→19:49)
[2021-05-29] MEDS ORDERED: FEXOFENADINE HCL 180 MG TAB PO PRN (20:44)
[2021-05-29] MEDS ORDERED: CARBOHYDRATES FOR HYPOGLYCEMIA PO PRN (20:44)
[2021-05-29] MEDS ORDERED: GLUCOSE 10 TABS/TUBE PO PRN (20:44)
[2021-05-29] MEDS ORDERED: hydrALAZINE HCL 20 MG/ML VIAL IV PRN (20:44)
[2021-05-29] MEDS ORDERED: GLUCOSE 40% GEL 15 GM TUBE PO PRN (20:44)
[2021-05-29] MEDS ORDERED: DEXTROSE 50% 50 ML SYRINGE IV PRN (20:44)
[2021-05-29] MEDS ORDERED: GLUCAGON FOR INJ 1 MG VIAL SQ PRN (20:44)
[2021-05-29] MEDS: METOPROLOL TARTRATE 25 MG TAB PO SCH (21:38)
[2021-05-29] MEDS: INSULIN GLARGINE SOLOSTAR 100 UNITS/ML 3 ML PEN SC SCH (21:43)
[2021-05-29] MEDS: INSULIN ASPART PER UNIT SC SCH (22:03)
[2021-05-30] MEDS: ACETAMINOPHEN 500 MG TAB PO PRN ×2 (03:53→15:20)
[2021-05-30 06:21] LABS: Basophils # (auto) 0.01 K/uL (0-0.2); Basophils % (auto) 0.1 %; Eosinophils # (auto) 0.03 K/uL (0-0.5); Eosinophils % (auto) 0.4 %; Hematocrit (blood only) 37.3 % (42-52); Hemoglobin 12.3 g/dL (14.0-18.0); Immature Granulocytes # (auto) 0.02 K/uL (0.00-0.02); Immature Granulocytes % (auto) 0.3 %; Lymphocytes % (auto) 21.1 %; Mean Corpuscular Hemoglobin 31.9 pg (25-34); Mean Corpuscular Volume 96.6 fL (80-100); Mean Platelet Volume 9.6 fL (7.4-10.4); Monocytes # (auto) 0.92 K/uL (0.11-0.59); Monocytes % (auto) 12.1 %; Neutrophils # (auto) 5.02 K/uL (1.4-6.5); Platelet Count 124 K/uL (130-400); RDW Coefficient of Variation 13.4 % (11.5-14.5); RDW Standard Deviation 47.5 fL (36.4-46.3); Red Blood Count 3.86 M/uL (4.7-6.1)
[2021-05-30 06:50] LABS: BUN Creatinine Ratio 18.5 (10-20); Calcium 8.7 mg/dl (8.5-10.1); Chol HDL Ratio 4.2; Creatinine Clr Calc Pharmacy 76.1 ml/min; Est GFR (African American) 95.3 ml/min; Est GFR (Non-African American) 82.2 ml/min; Potassium 3.7 mmol/L (3.5-5.1)
[2021-05-30] MEDS: INSULIN ASPART PER UNIT SC SCH ×4 (08:55→21:08)
[2021-05-30] MEDS: ASPIRIN 81 MG ECTAB PO SCH (08:56)
[2021-05-30] MEDS: lisinopril 40 MG TAB PO SCH (08:56)
[2021-05-30] MEDS: hydroCHLOROthiazide 25 MG TAB PO SCH (08:56)
[2021-05-30] MEDS: CLOPIDOGREL BISULFATE 75 MG TAB PO SCH (08:56)
[2021-05-30] MEDS: ATORVASTATIN 40 MG TAB PO SCH (08:56)
[2021-05-30] MEDS: METOPROLOL TARTRATE 25 MG TAB PO SCH ×2 (08:56→21:06)
--- NOTE | 2021-05-30 09:16 | Ultrasound Report ---
CAROTID ARTERY ULTRASOUND CLINICAL HISTORY: hx carotid stenosis, ?CVA COMPARISON STUDY: None. TECHNIQUE: Real-time, grayscale, and color Doppler sonography of the carotid and vertebral arteries w as performed. Images were viewed in the transverse and longitudinal planes. FINDINGS: There is moderate atherosclerotic plaque. Velocity measurements are listed below. COMMON CAROTID PEAK SYSTOLIC VELOCITY (CM/S): RIGHT 79 LEFT 72 ICA PEAK SYSTOLIC VELOCITY (CM/S): RIGHT 59 LEFT 158 Systolic ratio between the left internal to common carotid artery is elevated at 2.2. Mild elevated v elocities within the bilateral external carotid arteries are noted. This suggests mild stenoses of th e proximal bilateral external carotid artery. Antegrade flow is seen in the vertebral arteries. The external carotid arteries are patent. Blood pressure in the right arm measured 177/68. Blood pressure in the left arm measured 159/76. IMPRESSION: 1. Findings suggestive of 50-69% stenosis of the proximal left internal carotid artery. 2. Moderate atherosclerotic plaque. 3. Elevated blood pressure, as above. ACT 112: Negative or not required by law. Electronically signed by: Saeid Gould M.D. 05/30/2021 9:15 AM
--- NOTE | 2021-05-30 12:16 | Neurology Consultation ---
Date of Consultation May 30, 2021 Assessment & Plan (1) Visual hallucinations: 1. EEG- no seizure focus or discharges 2. MRI brain- no acute findings 3. carotid doppler- no significant stenosis some plaques 4. already taking aspirin 81 mg and plavix 75 mg daily 5. would order CTA head and neck for further evaluation of posterior circulation 6. TTE - no ASD 7. may have some underlying dementia that could be worked up in our office as an outpatient. will see in our office in 4-6 weeks after discharge. (2) Hypertensive urgency: 1. slowly decrease blood pressure Supervising Physician Co-Signing Physician Notes I have seen and discussed above patient with Dr Joanna Morse, neurology. Patient seen and examined history reviewed. 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 It was done under general anesthesia. Preoperatively the patient held his Plavix. By report the procedure was unremarkable and the patient was brought home on Wednesday and returned to the hospital on for this event patient reported from about 8 AM to 2 PM only with eyes closed that he would see well-formed objects rabbits Violeta lifts. They would only last a second and he assumed them to be binocular they were not restricted to 1 visual field and there was no visual loss there was no accompanying headache his did not think he was particularly confused there is no new weakness or numbness. No other significant pain was noted Patient received general anesthesia and has had difficulty with general anesthesia in the past. When he had dental work when he was younger he cried for his mother after the procedure. He has had generalized weakness. He has also had a change in cognition after one of his surgeries under general anesthesia. He was irritable and combative by report The patient reports that he has had some difficulty with short-term memory recently no difficulty with word finding. His lays out his medications. His driving has been adequate. He has no history of ocular disease. MRI of the brain by report showed no acute abnormality the images are not available. Carotid ultrasound showed left internal carotid stenosis of 50 to 69% The patient's blood pressure was markedly elevated on admission. Serum sodium initially was 131 EEG was mildly diffusely slow The patient is awake and alert oriented times month year place but not date he knows of who the president is although hesitate no right left confusion. Naming repetition and commands are normal. There are no carotid bruits no heart murmurs heart is regular rate and rhythm. Pupils are equal round reactive to light. No papilledema is noted no hemorrhages are noted there are normal rajput motility facial sensation and facial symmetry speech and language are normal as mentioned previously motor 5 out of 5 no drift normal rapid alternating movements. Finger-nose and [id number] are normal Vivid visual hallucinations not restricted to 1 eye or 1 visual field. No evidence of new infarction on MRI. EEG does not show any evidence of seizure. Suspect anesthesia effect. The fact that the patient has had some change in mentation in the past with anesthesia could suggest he has some underlying cognitive dysfunction. This could have been contributed by mild hyponatremia. Accelerated hypertension could be etiologic as well. Radiographically there is no evidence of PRES. Given that the patient has multiple vascular risk factors and atherosclerotic vasculopathy recommend CTA of the head and neck with and without contrast to rule out evidence of an embolic occlusion. Resume dual antiplatelet therapy provided there are no contraindications. Left internal carotid stenosis [address]% CT of the neck will help clarify. Vascular surgery is following this patient. This appears to be asymptomatic. History of Present Illness Reason for Consultation: Visual changes, CVA vs. HTN encephalopathy Requesting Physician: Antoinette Danielson MD Attending Physician: Antoinette Danielson MD History of Present Illness Jimy is a male with a PMH of insulin-requiring DM2, PE, CAD w/ NV and multiple cardiac stents, AAA s/p repair, HLD, carotid stenosis s/p CEA, silicosis, pneumoconiosis, PAD. He presented to [facility] ED 05/29/21 with new-onset visual changes. On Wednesday05/27/21 he underwent endoleak repair of previously repaired AAA. The procedure went well without complications. He was observed overnight and went home yesterday afternoon. He reports napping from 4-11 pm, got up and took two Tylenol, then went back to bed and slept until 8 am this morning. He noticed when he closed his eyes for a moment that he saw pictures of random things moving across his visions. When he opened his eyes, they were gone. He tried to distract himself by playing on his tablet for an hour, but these symptoms persisted. He describes pictures flashing across his rajput of vision from rabbits jumping in the snow to a load of lumber to nuclear codes, etc. moving across his field of vision. These visual changes only happen when he closes his eyes and resolve immediately upon opening them. 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 He also notes that his BP has been elevated for the past three months from a systolic in the 140s to the 170s.His staging technician at [facility] recommended a stress test, which has been postponed multiples times, and is scheduled for later this month. He previously had anesthesia and with each event he had reactions. the first time he had severe weakness that last several hours. the second time he got very mean which also lasted several hours and then this event which he states lasted about 5 hours. he states his blood pressure is also elevated which he does not usually have high blood pressure. there was no other vision changes with his eyes open, slurred speech, one sided weakness, numbness tingling. Allergies Allergy/AdvReac Type Severity Reaction Status Date / Time pollen extracts Allergy Unknown Verified 05/29/21 16:12 sitagliptin Allergy Unknown Verified 05/29/21 16:12 Home Medications Medication Instructions Recorded Confirmed Type aspirin 81 mg tablet,delayed 81 mg PO DAILY 07/14/19 05/29/21 History release atorvastatin 40 mg tablet (Lipitor) 40 mg PO DAILY 07/14/19 05/29/21 History clopidogrel 75 mg tablet (Plavix) 75 mg PO DAILY 07/14/19 05/29/21 History fexofenadine 180 mg tablet 180 mg PO QAM PRN 07/14/19 05/29/21 History (Eugenia Allergy) insulin aspart U-100 100 unit/mL 11 unit SUBCUT QDB 07/14/19 05/29/21 History (3 mL) subcutaneous pen (Novolog Flexpen U-100 Insulin aspart) insulin aspart U-100 100 unit/mL 14 unit SUBCUT QDD 07/14/19 05/29/21 History (3 mL) subcutaneous pen (Novolog Flexpen U-100 Insulin aspart) insulin aspart U-100 100 unit/mL 20 unit SUBCUT QDL 07/14/19 05/29/21 History (3 mL) subcutaneous pen (Novolog Flexpen U-100 Insulin aspart) insulin glargine 100 unit/mL (3 35 unit SUBCUT HS 07/14/19 05/29/21 History mL) subcutaneous pen (Basaglar KwikPen U-100 Insulin) metoprolol tartrate 25 mg tablet 12.5 mg PO BID 07/14/19 05/29/21 History nitroglycerin 0.4 mg sublingual 0.4 mg SUBLINGUAL Q5M PRN MDD 1.2 07/14/19 05/29/21 History tablet (Nitrostat) mg hydrochlorothiazide 12.5 mg capsule 12.5 mg PO DAILY 05/29/21 05/29/21 History lisinopril 40 mg tablet 40 mg PO DAILY 05/29/21 05/29/21 History metformin 1,000 mg tablet 1,000 mg PO BID 05/29/21 05/29/21 History Patient History Medical History AAA (abdominal aortic aneurysm) Carotid stenosis Dyslipidemia History of pulmonary embolism HTN (hypertension) NV (myocardial infarction) PAD (peripheral artery disease) Pneumoconiosis Pulmonary embolism Pulmonary nodule seen on imaging study Silicosis Type 2 diabetes mellitus Surgical History History of AAA (abdominal aortic aneurysm) repair Repair in 2017 with subsequent type 2 endoleak that was repaired in May 2021 History of cardiac cath 2009 - stents History of carotid endarterectomy History of heart artery stent Family History Other Cancer Diabetes Heart disease Stroke Social History Smoking Status: Former smoker Tobacco Type: Cigarettes Second Hand Exposure: No; Do You Dip or Chew Tobacco: Yes; Tobacco Cessation Education Requested by Patient: No Hx Alcohol Use: No Hx Substance Use: No Preferred Language: Mongolian Communication Ability: Effective Hospital Fellow Required: No Beliefs That Will Affect Care: None marital status: Current Living Situation: Spouse How many Children do You have: 2 Other Information That Helps Us Care for You: No Feels Safe at Home: Yes Safety Concerns: Feels Safe At This Time Assistive Devices: None Review of Systems Review of Systems: All systems reviewed & are unremarkable except as noted in HPI & below Physical Exam Physical Exam: Physical Exam: Constitutional: appearance nourished, healthy and obese Ears, Nose, Mouth and Throat: mucous membranes moist, no injection and skin normal, eyes normal Cardiovascular: normal S-1 and S-2 and regular rate and rhythm Respiratory: course breath sounds Musculoskeletal: no peripheral edema and good distal pulses Skin: no stigmata of neurocutaneous disease noted and normal and intact Eyes: extraocular muscles intact (EOMI) and pupils equal, round and reactive to light (PERRL) NEUROLOGIC EXAMINATION: Mental status: Alert and interactive Oriented to full date and location Oriented to person Speech fluent with no evidence of aphasia Cranial Nerves smile eye brow raise symmetric Reflexes: Deep tendon reflexes were symmetrical and decreased bilaterally LE Sensory: decrease to vibration and cool touch Coordination: finger to nose, romberg + with eyes closed Gait/Stance: Posture normal. Gait - with steady with steps, base, turning, and wide base waddling tandem gait. Motor: Negative for pronator drift of out stretched arms with eyes closed. Strength: hand cycle analyst biceps triceps 5/5 bilaterally, hip flex plantar flex ext Results & Data ([facility]) Vital Signs (Past 12 Hours) Vital Signs Temp Pulse Pulse Resp BP Pulse Ox 05/30/21 10:51 36.8 C 60 20 164/72 H 92 05/30/21 07:29 75 05/30/21 07:05 36.8 C 67 19 157/68 H 93 05/30/21 04:22 37.0 C 72 17 143/64 H 98 05/30/21 01:35 71 05/30/21 01:29 37.3 C 67 18 129/66 95 Laboratory Results Abnormal lab results 05/29/21 05/29/21 05/30/21 Range/Units 17:07 21:37 06:00 RBC 3.86 L (4.7-6.1) M/uL Hgb 12.3 L (14.0-18.0) g/dL Hct 37.3 L (42-52) % RDW Std Deviation 47.5 H (36.4-46.3) fL Plt Count 124 L (130-400) K/uL [place] # (Auto) 0.92 H (0.11-0.59) K/uL Sodium (136-145) mmol/L Glucose (70-99) mg/dl POC Glucose 168 H (70-99) mg/dl Urine Protein Trace H (Negative) Urine Blood 1+ H (Negative) U Epithel Cells (Auto) 5-10 H (0-5) /lpf 05/30/21 05/30/21 05/30/21 Range/Units 06:00 07:21 11:11 RBC (4.7-6.1) M/uL Hgb (14.0-18.0) g/dL Hct (42-52) % RDW Std Deviation (36.4-46.3) fL Plt Count (130-400) K/uL [place] # (Auto) (0.11-0.59) K/uL Sodium 133 L (136-145) mmol/L Glucose 209 H (70-99) mg/dl POC Glucose 183 H 171 H (70-99) mg/dl Urine Protein (Negative) Urine Blood (Negative) U Epithel Cells (Auto) (0-5) /lpf 05/30/21 Range/Units 16:07 RBC (4.7-6.1) M/uL Hgb (14.0-18.0) g/dL Hct (42-52) % RDW Std Deviation (36.4-46.3) fL Plt Count (130-400) K/uL [place] # (Auto) (0.11-0.59) K/uL Sodium (136-145) mmol/L Glucose (70-99) mg/dl POC Glucose 162 H (70-99) mg/dl Urine Protein (Negative) Urine Blood (Negative) U Epithel Cells (Auto) (0-5) /lpf Diagnostic Findings CT head-There is no hemorrhage, mass effect, or evidence of acute territorial ischemia by CT criteria. MRI brain-No acute intracranial abnormality. CXR-Cardiomegaly and chronic parenchymal changes as above with no acute cardiopulmonary abnormality. carotid doppler- Findings suggestive of 50-69% stenosis of the proximal left internal carotid artery. Moderate atherosclerotic plaque. . Elevated blood pressure, as above. EEG-This is an abnormal routine EEG due to mild generalized background slowing suggestive of a mild nonspecific encephalopathy. There is no evidence of focal slowing or epileptiform activity.
--- NOTE | 2021-05-30 15:28 | Electroencephalogram ---
EEG Procedure Note Date of Service May 30, 2021 Start / End Times Start Time: 12:11 End Time: 12:[address] Morse History A 75-year-old male with new visual hallucinations. EEG performed evaluation epileptiform activity. Home Medication List Medication Instructions Recorded Confirmed Type aspirin 81 mg tablet,delayed 81 mg PO DAILY 07/14/19 05/29/21 History release atorvastatin 40 mg tablet (Lipitor) 40 mg PO DAILY 07/14/19 05/29/21 History clopidogrel 75 mg tablet (Plavix) 75 mg PO DAILY 07/14/19 05/29/21 History fexofenadine 180 mg tablet 180 mg PO QAM PRN 07/14/19 05/29/21 History (Eugenia Allergy) insulin aspart U-100 100 unit/mL 11 unit SUBCUT QDB 07/14/19 05/29/21 History (3 mL) subcutaneous pen (Novolog Flexpen U-100 Insulin aspart) insulin aspart U-100 100 unit/mL 14 unit SUBCUT QDD 07/14/19 05/29/21 History (3 mL) subcutaneous pen (Novolog Flexpen U-100 Insulin aspart) insulin aspart U-100 100 unit/mL 20 unit SUBCUT QDL 07/14/19 05/29/21 History (3 mL) subcutaneous pen (Novolog Flexpen U-100 Insulin aspart) insulin glargine 100 unit/mL (3 35 unit SUBCUT HS 07/14/19 05/29/21 History mL) subcutaneous pen (Basaglar KwikPen U-100 Insulin) metoprolol tartrate 25 mg tablet 12.5 mg PO BID 07/14/19 05/29/21 History nitroglycerin 0.4 mg sublingual 0.4 mg SUBLINGUAL Q5M PRN MDD 1.2 07/14/19 05/29/21 History tablet (Nitrostat) mg hydrochlorothiazide 12.5 mg capsule 12.5 mg PO DAILY 05/29/21 05/29/21 History lisinopril 40 mg tablet 40 mg PO DAILY 05/29/21 05/29/21 History metformin 1,000 mg tablet 1,000 mg PO BID 05/29/21 05/29/21 History Inpatient Medication List Acetaminophen (Acetaminophen 500 Mg Tab) 1,000 mg PO Q6H PRN PRN Reason: Pain Stop: 06/28/21 18:21 Last Admin: 05/30/21 15:20 Dose: 1,000 mg Documented by: [id number] Admin: 05/30/21 03:53 Dose: 1,000 mg Documented by: [id number] Admin: 05/29/21 19:25 Dose: 1,000 mg Documented by: [id number] Aspirin (Aspirin 81 Mg Ectab) 81 mg PO DAILY [facility] Stop: 06/29/21 08:59 Last Admin: 05/30/21 08:56 Dose: 81 mg Documented by: [id number] Atorvastatin Calcium (Atorvastatin 40 Mg Tab) 40 mg PO DAILY [facility] Stop: 06/29/21 08:59 Last Admin: 05/30/21 08:56 Dose: 40 mg Documented by: [id number] Clopidogrel Bisulfate (Clopidogrel Bisulfate 75 Mg Tab) 75 mg PO DAILY [facility] Stop: 06/29/21 08:59 Last Admin: 05/30/21 08:56 Dose: 75 mg Documented by: [id number] Fexofenadine HCl (Fexofenadine Hcl 180 Mg Tab) 180 mg PO QAM PRN PRN Reason: Allergy Symptoms Stop: 06/28/21 20:43 Last Admin: 05/30/21 08:56 Dose: 180 mg Documented by: [id number] Hydralazine HCl (Hydralazine Hcl 20 Mg/Ml Vial) 10 mg IV Q6H PRN PRN Reason: Hypertension Stop: 06/28/21 20:43 Last Admin: 05/30/21 15:20 Dose: 10 mg Documented by: [id number] Hydrochlorothiazide (Hydrochlorothiazide 25 Mg Tab) 25 mg PO QAM [facility] Stop: 06/29/21 08:59 Last Admin: 05/30/21 08:56 Dose: 25 mg Documented by: [id number] Insulin Aspart (Insulin Aspart Per Unit) 0 units SC ACHS [facility] Stop: 06/28/21 20:59 Last Admin: 05/30/21 12:04 Dose: 1 units Documented by: [id number] Cosigned by: [id number] Admin: 05/30/21 08:55 Dose: 9 units Documented by: [id number] Cosigned by: [id number] Admin: 05/29/21 22:03 Dose: Not Given Documented by: [id number] Cosigned by: [id number] Insulin Glargine (Insulin Glargine Solostar 100 Units/Ml 3 Ml Pen) 25 units SC HS [facility] Stop: 06/28/21 20:59 Last Admin: 05/29/21 21:43 Dose: 25 units Documented by: [id number] Cosigned by: [id number] Lisinopril (Lisinopril 40 Mg Tab) 40 mg PO DAILY [facility] Stop: 06/29/21 08:59 Last Admin: 05/30/21 08:56 Dose: 40 mg Documented by: [id number] Metoprolol Tartrate (Metoprolol Tartrate 25 Mg Tab) 12.5 mg PO BID [facility] Stop: 06/28/21 20:59 Last Admin: 05/30/21 08:56 Dose: 12.5 mg Documented by: [id number] Admin: 05/29/21 21:38 Dose: 12.5 mg Documented by: [id number] Discontinued Medications Gadobutrol (Gadobutrol 65ml Vial) 10.5 ml IV ONCE ONE Stop: 05/29/21 18:52 Last Admin: 05/29/21 18:51 Dose: 10.5 ml Documented by: [id number] Hydrochlorothiazide (Hydrochlorothiazide 25 Mg Tab) 12.5 mg PO NOW STA Stop: 05/29/21 19:27 Last Admin: 05/29/21 19:33 Dose: 12.5 mg Documented by: [id number] Sodium Chloride (Nss) 500 mls @ 125 mls/hr IV .Q4H ONE Stop: 05/29/21 21:20 Last Infusion: 05/29/21 22:02 Dose: 0 mls/hr Documented by: [id number] Admin: 05/29/21 17:27 Dose: 125 mls/hr Documented by: [id number] Labetalol HCl (Labetalol Hcl Iv 5 Mg/Ml 20ml) 10 mg IV NOW STA Stop: 05/29/21 19:48 Last Admin: 05/29/21 21:01 Dose: Not Given Documented by: [id number] Labetalol HCl (Labetalol Hcl Iv 5 Mg/Ml 20ml) 10 mg IV NOW STA Stop: 05/29/21 19:50 Last Admin: 05/29/21 20:13 Dose: 10 mg Documented by: [id number] Cosigned by: [id number] Description This is a 21 electrode EEG with a single channel dedicated to limited EKG. The electrodes were placed in accordance with the International 10-20 system. REPORT: At the onset of the EEG the patient appears drowsy. The background is symmetric. The posterior dominant rhythm is not well seen. The background predominantly consisted of 7-8 hertz theta activity with some intermixed 2-3 hertz delta activity. No stage 2 sleep transients are noted. Photic stimulation does not induce any additional abnormalities. Interpretation IMPRESSION: This is an abnormal routine EEG due to mild generalized background slowing suggestive of a mild nonspecific encephalopathy. There is no evidence of focal slowing or epileptiform activity.
[2021-05-30] MEDS ORDERED: LABETALOL HCL IV 5 MG/ML 20ML IV PRN (18:02)
[2021-05-30] MEDS: INSULIN GLARGINE SOLOSTAR 100 UNITS/ML 3 ML PEN SC SCH (21:09)
--- NOTE | 2021-05-30 22:28 | Hospitalist Progress Note ---
Date of Service May 30, 2021 Assessment & Plan (1) Visual hallucinations: Plan: Present on admission with visual hallucination after discharge from [facility] for CT abdomen of a leaking abdominal aortic aneurysm Possible related to post general anesthesia effect versus hypertensive urgency versus hyponatremia CT head showed no acute intracranial abnormality MRI showed no acute intracranial finding EEG shows no seizure activity Carotid ultrasound showed findings suggestive of 50-69% stenosis of the proximal left internal carotid artery. Moderate atherosclerotic plaque. Echo showed mild LVH. No LV wall motion abnormality. Ejection fraction 55 to 60% Neuro on board recommend to continue dual antiplatelet with Plavix and aspirin We will get a CTA of the head and neck Denies any focal neuro deficit Resolved (2) Hypertensive urgency: Plan: BP markedly elevated on presentation to the ED at 236/85 Compliant with BP meds HCTZ increased to 25 mg Continue lisinopril 40 mg and metoprolol 12.5 mg twice daily Consider to add amlodipine if BP continue to elevate Received IV labetalol on admission BP improved Continue as needed BP meds Continue monitor BP (3) Carotid stenosis: Plan: s/p right CEA. Most recent carotid duplex in May 2020 showed less than 50% stenosis of right ICA, 50-69% stenosis of left ICA. Carotid ultrasound showed findings suggestive of 50-69% stenosis of the proximal left internal carotid artery. Moderate atherosclerotic plaque. Asymptomatic (4) Type 2 diabetes mellitus: Plan: A1c on 05/26/21 was 9.0 Continue Lantus and insulin sliding scale Continue monitor BMP (5) Dyslipidemia: Plan: Total cholesterol 147, triglyceride 148, LDL 82, and HDL 35 Continue statin (6) PAD (peripheral artery disease): Plan: Continue anti-platelets (ASA/Plavix) (7) S/P AAA repair: Plan: Continue metoprolol, lisinopril, Plavix and aspirin Outpatient follow-up with vascular surgery Plan: DVT Prophylaxis: SCDs due to recent AAA endoleak repair and patient ambulated Code Status: Full code Admission and Anticipated Discharge Date Admission Date: May 29, 2021 Subjective Patient was seen and evaluated for follow-up of elevated blood pressure and visual disturbance Sitting in chair with no acute distress watching TV. Patient said that he feels fine He said he did not have any visual disturbance when closing his eyes last night or this morning He is very anxious to go home today since has breast biopsy done this morning Denies any symptoms such as chest pain, palpitation, dizziness, weakness, SOB Review of Systems Review of Systems: All systems reviewed & are unremarkable except as noted in Subjective Physical Exam Physical Exam: General- No acute distress Head- atraumatic Eyes- PERRL, EOMI, ENT- oropharynx clear Neck- supple, no JVD Lungs- clear to auscultation Heart- +no murmur Abdomen- normal bowel sounds, soft, nontender Extremities- no calf tenderness Neuro- alert, oriented x 3; PERRL, EOMI; no facial palsy; no dysarthria Skin- warm & dry Results & Data Results & Data ([facility]) Vital Signs (Past 12 Hours) Vital Signs Temp Pulse Pulse Resp BP Pulse Ox 05/30/21 21:05 37.2 C 73 22 170/77 H 97 05/30/21 18:53 137/72 05/30/21 18:41 172/75 H 05/30/21 16:00 74 05/30/21 15:14 37.0 C 62 20 207/93 H 94 05/30/21 10:51 36.8 C 60 20 164/72 H 92
[2021-05-31] MEDS: ACETAMINOPHEN 500 MG TAB PO PRN (00:50)
[2021-05-31] MEDS: hydroCHLOROthiazide 25 MG TAB PO SCH (08:30)
[2021-05-31] MEDS: CLOPIDOGREL BISULFATE 75 MG TAB PO SCH (08:30)
[2021-05-31] MEDS: ATORVASTATIN 40 MG TAB PO SCH (08:30)
[2021-05-31] MEDS: lisinopril 40 MG TAB PO SCH (08:31)
[2021-05-31] MEDS: METOPROLOL TARTRATE 25 MG TAB PO SCH (08:31)
[2021-05-31] MEDS: INSULIN ASPART PER UNIT SC SCH ×2 (08:33→12:05)
[2021-05-31 09:10] LABS: BUN Creatinine Ratio 22.3 (10-20); Calcium 9.2 mg/dl (8.5-10.1); Creatinine Clr Calc Pharmacy 72.7 ml/min; Est GFR (African American) 92.9 ml/min; Est GFR (Non-African American) 80.1 ml/min; Potassium 3.7 mmol/L (3.5-5.1)
[2021-05-31] MEDS ORDERED: OPTIRAY 320 125ml IV ONE (09:22)
--- NOTE | 2021-05-31 10:45 | CT Scan Report ---
CT angio head wo/w CLINICAL HISTORY: Visual disturbances. Stroke like symptoms. Evaluate for vessel occlusion. COMPARISON STUDY: Head CT and MRI of the brain May 29, 2021. TECHNIQUE: Unenhanced and arterial phase imaging of the head was performed. Intravenous injection of 118 cc Optiray 320 IV was uneventful. Sagittal and coronal reconstructions were viewed as well as max imal intensity projections on an independent 3-D workstation. Automated exposure control was utilized for the study. A dose lowering technique was utilized adhering to the principles of ALARA. FINDINGS: No acute intracranial hemorrhage, midline shift or mass effect is present. Ventricular syst em is normal. Basal cisterns are patent. There are no extra axial collections. Crook-white differentia tion is maintained. There are no findings to suggest acute dural sinus thrombosis or acute territoria l infarct. The right sphenoid sinus is largely opacified. There are no significant calvarial abnormal ities. The bilateral M1, M2, A1 and A2 segments are patent. There is no central vessel occlusion. Ant erior communicating artery is present. The left vertebral artery is dominant. Posterior circulation i s intact. Right vertebral artery is diminutive, likely on a congenital basis. There are several tiny outpouchings of the bilateral cavernous carotids which measure up to 2 mm. These could reflect infund ibula or tiny aneurysms and are of doubtful significance. IMPRESSION: 1. No central vessel occlusion. 2. No acute intracranial findings. 3. Several tiny outpouchings of the bilateral cavernous carotids which measure up to 2 mm. These coul d reflect infundibula or tiny aneurysms and are of doubtful significance. ACT 112: Negative or not required by law. Electronically signed by: Saeid Gould M.D. 05/31/2021 10:44 AM
--- NOTE | 2021-05-31 10:53 | CT Scan Report ---
CT ANGIOGRAPHY OF THE NECK WITH CONTRAST CLINICAL HISTORY: Stroke like symptoms. Visual disturbances. COMPARISON STUDY: Carotid ultrasound May 30, 2021. Technique: CT angiography of the carotid and vertebral arteries was obtained using Optiray and 3D rec onstruction on an independent workstation. NASCET criteria was utilized. Automated exposure control was utilized for the study. A dose lowering technique was utilized adhering to the principles of ALA RA. Findings: Innumerable calcified and noncalcified nodules within visualized portions of the lung apice s are similar to chest CT of August 19, 2015. Prominent partially visualized mediastinal lymph nodes ar e also unchanged. These findings are chronic. There is no acute cervical spine fracture. The left essence tebral artery is dominant and patent. There is tortuosity of the proximal left vertebral artery. No d issection within the intracranial vessels is noted. There is mild plaque within the proximal right in ternal carotid artery without stenosis of this vessel. There is extensive ulcerated noncalcified and calcified plaque within the proximal left internal carotid artery which extends for 1.2 cm. This resu lts in approximate 70% stenosis of the proximal left internal carotid artery. The vessel measures 4 m m distally and approximately 1.5 mm at site of stenosis. No additional significant stenosis within th e vessels of the neck are noted. IMPRESSION: 1. Extensive ulcerated plaque within the proximal left internal carotid artery which results in appro ximate 70% stenosis of this vessel. 2. No additional significant stenosis within the major vessels of the neck. 3. No change in numerous calcified and noncalcified pulmonary nodules within the lung apices and prom inent mediastinal lymph nodes since CT of August 19, 2015. These findings are chronic and favor a granu lomatous process ACT 112: Negative or not required by law. Electronically signed by: Saeid Gould M.D. 05/31/2021 10:51 AM
[2021-05-31] MEDS: ASPIRIN 81 MG ECTAB PO SCH (11:15)
[2021-05-31] MEDS ORDERED: amLODIPine BESYLATE 5 MG TAB PO ONE (12:52)
--- NOTE | 2021-05-31 13:14 | Progress Notes ---
DATE OF SERVICE: 05/31/2021. SUBJECTIVE: I am seeing the patient in followup of the visual hallucinations, which occurred 2 days after a surgical procedure. The patient has not had any further visual hallucinations. He indicates he is feeling well, has not had any headaches, new weakness or numbness. His CTA of the head shows no central vessel occlusion, right vertebral artery is diminutive on a congenital basis, several tiny outpouchings of the bilateral cavernous carotids, which measure up to 2 mm. They could reflect infundibular or tiny aneurysms and are of doubtful significance. CTA of the neck shows extensive ulcerative plaque within the proximal left internal carotid artery, which results in approximately 70% stenosis of this vessel. No additional significant stenosis within the major vessels of the neck. OBJECTIVE: On examination, the patient is awake and alert. Speech and language are normal and his affect is appropriate. There are no field cuts. There is normal facial symmetry and symmetric strength. IMPRESSION AND PLAN: Visual hallucinations, most likely on the basis of a postanesthesia event. In spite of hours of said symptoms, the patient showed no evidence of stroke on MRI scan. Additionally, the visual hallucinations were not restricted to one visual field, i.e., the distribution of one posterior cerebral artery. I agree with the resumption of his Plavix, which was held several days prior to his procedure. 1. Often hallucinations occur in patients who have some cognitive impairment. If this needs to be further explored, the patient can see us in followup. 2. The patient follows with Vascular Surgery regarding his left internal carotid stenosis. I would recommend a followup CTA of the head in 6 months to be performed by primary care to further evaluate the possible intracranial infundibulum versus tiny aneurysms. If there is no evidence of aneurysm, followup CTA does not need to be performed. If there is evidence of intracranial aneurysm the patient should be sent to see Vascular Neurosurgery to advise on the frequency if any of further imaging and management. We will sign off. Job ID: [id number] [facility]
--- NOTE | 2021-05-31 13:33 | Discharge Summary ---
Date of Service May 31, 2021 Admission HPI Per Admitting Provider This is a 75 y/o male with a PMH of insulin-requiring DM2, prior PE, CAD w/ prior MA and multiple cardiac stents, AAA s/p repair, dyslipidemia, carotid stenosis s/p CEA, silicosis, pneumoconiosis, PAD, and other medical hx as below who presented to the ED today with new-onset visual changes. On Wednesday (two days ago), pt underwent endoleak repair of previously repaired AAA. Per pt, procedure went well without complications. He was observed overnight and went home yesterday afternoon. He reports napping from 4-11 pm yesterday, got up and took two Tylenol, then went back to bed and slept until 8 am this morning. Shortly after he got up, he noticed when he closed his eyes for a moment that he saw pictures of random things moving across his visions. When he opened his eyes, they were gone. He tried to distract himself by playing on his tablet for an hour, but these symptoms persisted. He describes pictures flashing across his rajput of vision from rabbits jumping in the snow to a load of lumber to n uclear codes, etc. moving across his field of vision. These visual changes only happen when he closes his eyes and resolve immediately upon opening them. He denies any other visual changes - no blurry vision or diplopia, no eye pain, no eye drainage. Last eye exam was two years ago. He denies history of glaucoma. 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 He also notes that his BP has been elevate d for the past three months from a systolic in the 140s to the 170s. His clam treader at [place] recommended a stress test, which has been postponed multiples times, and is scheduled for later this month. He denies chest pain or pressure, MORENO, dizziness, SOB, syncope. He has never had a stroke before that he is aware of. He denies any similar symptoms previously. Admission Exam Per Admitting Provider Constitutional: well developed and well nourished; no acute distress Eyes: PERRL, conjunctivae normal, anicteric sclerae EOM intact bilaterally; no nystagmus Neck: trachea midline Respiratory: no respiratory distress and no labored breathing Auscultation: lungs clear to auscultation bilaterally; no rales, no rhonchi and no wheezes Cardiovascular: Rate/Rhythm: regular rate and regular rhythm Heart Sounds: + murmur Vessels: + carotid bruit (faint on left, none on right), dorsalis pedis pulses present and radial pulses present Extremities: no calf tenderness and no pedal edema Gastrointestinal (Abdomen): Inspection/Auscultation: normal bowel sounds; abdomen not distended Percussion/Palpation: abdomen soft; abdomen nontender Musculoskeletal: Head/Neck/Chest: normocephalic, head atraumatic and neck supple Gait: normal gait (walking around the room) UE strength 5/5 and equal Skin: + ecchymosis (a few small areas of ecchy mosis noted on arms); no jaundice Neurologic: moves all extremities; no focal motor deficits Speech / Cognition: normal speech Motor/Sensory: no tremor and no fasciculations Cranial Nerves: PERRL, normal accommodation, EOM intact bilaterally, able to rotate head bilaterally and able to elevate shoulders bilaterally Psychiatric: A+Ox3, euthymic affect Principal Diagnosis Visual hallucinations: Hypertensive urgency: Carotid stenosis: Type 2 diabetes mellitus: Dyslipidemia: PAD (peripheral artery disease): S/P AAA repair: Discharge Exam General- No acute distress Head- atraumatic Eyes- PERRL, EOMI, ENT- oropharynx clear Neck- supple, no JVD Lungs- clear to auscultation Heart- +no murmur Abdomen- normal bowel sounds, soft, nontender Extremities- no calf tenderness Neuro- alert, oriented x 3; PERRL, EOMI; no facial palsy; no dysarthria Skin- warm & dry Discharge Data Allergies Allergy/AdvReac Type Severity Reaction Status Date / Time pollen extracts Allergy Unknown Verified 05/29/21 16:12 sitagliptin Allergy Unknown Verified 05/29/21 16:12 Consultations 05/29/21 17:22 ED Decision to Admit Stat 05/29/21 20:44 Consult Neurology Routine Ordered Studies 05/29/21 14:05 CT head/brain wo con Stat 05/29/21 16:34 MR brain wo/w con Stat 05/30/21 17:58 CT angio head wo/w Routine CT angio neck with con Routine 05/30/21 20:44 US carotid doppler BI Routine CAROTID ARTERY ULTRASOUND CLINICAL HISTORY: hx carotid stenosis, ?CVA COMPARISON STUDY: None. TECHNIQUE: Real-time, grayscale, and color Doppler sonography of the carotid and vertebral arteries was performed. Images were viewed in the transverse and longitudinal planes. FINDINGS: There is moderate atherosclerotic plaque. Velocity measurements are listed below. COMMON CAROTID PEAK SYSTOLIC VELOCITY (CM/S): RIGHT 79 LEFT 72 ICA PEAK SYSTOLIC VELOCITY (CM/S): RIGHT 59 LEFT 158 Systolic ratio between the left internal to common carotid artery is elevated at 2.2. Mild elevated velocities within the bilateral external carotid arteries are noted. This suggests mild stenoses of the proximal bilateral external carotid artery. Antegrade flow is seen in the vertebral arteries. The external carotid arteries are patent. Blood pressure in the right arm measured 177/68. Blood pressure in the left arm measured 159/76. IMPRESSION: 1. Findings suggestive of 50-69% stenosis of the proximal left internal carotid artery. 2. Moderate atherosclerotic plaque. 3. Elevated blood pressure, as above. ACT 112: Negative or not required by law. Electronically signed by: Saeid Gould M.D. 05/30/2021 9:15 AM Dictated:05/30/21911 Transcribed: 05/30/21911 CT ANGIOGRAPHY OF THE NECK WITH CONTRAST CLINICAL HISTORY: Stroke like symptoms. Visual disturbances. COMPARISON STUDY: Carotid ultrasound May 30, 2021. Technique: CT angiography of the carotid and vertebral arteries was obtained using Optiray and 3D reconstruction on an independent workstation. NASCET criteria was utilized. Automated exposure control was utilized for the study. A dose lowering technique was utilized adhering to the principles of ALARA. Findings: Innumerable calcified and noncalcified nodules within visualized portions of the lung apices are similar to chest CT of August 19, 2015. Prominent partially visualized mediastinal lymph nodes are also unchanged. These findings are chronic. There is no acute cervical spine fracture. The left vertebral artery is dominant and patent. There is tortuosity of the proximal left vertebral artery. No dissection within the intracranial vessels is noted. There is mild plaque within the proximal right internal carotid artery without sten osis of this vessel. There is extensive ulcerated noncalcified and calcified plaque within the proximal left internal carotid artery which extends for 1.2 cm. This results in approximate 70% stenosis of the proximal left internal carotid artery. The vessel measures 4 mm distally and approximately 1.5 mm at site of stenosis. No additional significant stenosis within the vessels of the neck are noted. IMPRESSION: 1. Extensive ulcerated plaque within the proximal left internal carotid artery which results in approximate 70% stenosis of this vessel. 2. No additional significant stenosis within the major vessels of the neck. 3. No change in numerous calcified and noncalcified pulmonary nodules within the lung apices and prominent mediastinal lymph nodes since CT of August 19, 2015. These findings are chronic and favor a granulomatous process ACT 112: Negative or not required by law. Electronically signed by: Saeid Gould M.D. 05/31/2021 10:51 AM Dictated:05/31/21 1044 Transcribed: 05/31/[address] angio head wo/w CLINICAL HISTORY: Visual disturbances. Stroke like symptoms. Evaluate for vessel occlusion. COMPARISON STUDY: Head CT and MRI of the brain May 29, 2021. TECHNIQUE: Unenhanced and arterial phase imaging of the head was performed. Intravenous injection of 118 cc Optiray 320 IV was uneventful. Sagittal and coronal reconstructions were viewed as well as maximal intensity projections on an independent 3-D workstation. Automated exposure control was utilized for the study. A dose lowering technique was utilized adhering to the principles of ALARA. FINDINGS: No acute intracranial hemorrhage, midline shift or mass effect is present. Ventricular system is normal. Basal cisterns are patent. There are no extra axial collections. Crook-white differentiation is maintained. There are no findings to suggest acute dural sinus thrombosis or acute territorial infarct. The right sphenoid sinus is largely opacified. There are no significant calvarial abnormalities. The bilateral M1, M2, A1 and A2 segments are patent. There is no central vessel occlusion. Anterior communicating artery is present. The left vertebral artery is dominant. Posterior circulation is intact. Right vertebral artery is diminutive, likely on a congenital basis. There are several tiny outpouchings of the bilateral cavernous carotids which measure up to 2 mm. These could reflect infundibula or tiny aneurysms and are of doubtful significance. IMPRESSION: 1. No central vessel occlusion. 2. No acute intracranial findings. 3. Several tiny outpouchings of the bilateral cavernous carotids which measure up to 2 mm. These could reflect infundibula or tiny aneurysms and are of doubtful significance. ACT 112: Negative or not required by law. Electronically signed by: Saeid Gould M.D. 05/31/2021 10:44 AM Dictated:05/31/21 1035 Transcribed: 05/31/21 1036 SINGLE VIEW CHEST CLINICAL HISTORY: Visual changes. Recent surgery. FINDINGS: 2 AP, portable, semierect chest radiographs are compared to study dated 07/14/2019 and correlated with chest CT dated 08/19/2015. The examination is degraded by portable technique and apical lordotic positioning. The heart is enlarged noting atherosclerotic calcification of the thoracic aorta. The pulmon св[place]лана vasculature is noncongested. Chronic interstitial thickening is similar to previous. Miliary calcified pulmonary nodules are unchanged. No airspace consolidation or large pleural effusion is identified. Scarring/atelectasis is seen at the lung bases. No pneumothorax is identified. The skeletal structures are osteopenic. The bony thorax is grossly intact. IMPRESSION: Cardiomegaly and chronic parenchymal changes as above with no acute cardiopulmonary abnormality. ACT 112: Negative or not required by law. Electronically signed by: Brijesh Cristina M.D. 05/29/2021 5:33 PM Dictated:05/29/211731 Transcribed: 05/29/211731 MRI OF THE BRAIN COMBO CLINICAL HISTORY: Visual changes. Recent surgery. COMPARISON STUDY: CT of the brain dated 05/29/2021. TECHNIQUE: MRI of the brain was performed utilizing various T1 and T2-weighted sequences in the axial, sagittal, and coronal planes. Contrast-enhanced sequences were acquired following the administration of 10.5 cc of Gadavist. The examination is modestly degraded by motion artifact. FINDINGS: Brain parenchyma: There is age-related involutional change noting minimal mi croangiopathic disease. There is no hemorrhage or mass effect. There is no restricted diffusion to suggest acute ischemia. No enhancing mass lesion is identified on the postcontrast images. Crook-white matter differentiation is preserved. No extra-axial fluid collection is seen. The cerebellar tonsils are normal in configuration. Ventricles, sulci, and cisterns: Prominent secondary to involutional change. Pituitary and sella: Partially empty sella is incidentally noted. Intracranial vasculature: Normal flow voids are maintained at the skull base. Orbits: The bony orbits are grossly intact. Orbital contents are normal in appearance. Sinuses and mastoids: There is mucosal thickening within the right sphenoid sinus. The remaining paranasal sinuses appear clear. The mastoid air cells are w ell pneumatized. Calvarium: Unremarkable. Cervical cord: Partially visualized cervical spinal cord is normal in morphology and signal intensity. IMPRESSION: No acute intracranial abnormality. ACT 112: Negative or not required by law. Electronically signed by: Brijesh Cristina M.D. 05/29/2021 7:08 PM Dictated:05/29/211904 Transcribed: 05/29/211904 CT SCAN OF THE BRAIN WITHOUT IV CONTRAST CLINICAL HISTORY: Strokelike symptoms. COMPARISON STUDY: No priors. TECHNIQUE: Unenhanced axial CT scan of the brain is performed from the vertex to the skull base. A dose lowering technique was utilized adhering to the principles of ALARA. CT DOSE: 823.94 mGycm FINDINGS: Brain parenchyma: There are age-related involutional changes noting mild subcortical and periventricular microangiopathic change. There is no hemorrhage, mass effect, or evidence of acute territorial ischemia by CT criteria. Crook- white matter differentiation is preserved. No extra-axial fluid collection is seen. Ventricles, sulci, cisterns: Prominent secondary to involutional change. Intracranial vasculature: There is atherosclerotic calcification of the cavernous carotid and vertebral arteries. Calvarium: Unremarkable. Sinuses and mastoids: There is subtotal opacification of the right sphenoid sinu s. The remaining paranasal sinuses are clear. The mastoid air cells are well pneumatized. Orbits: The bony orbits are grossly intact. IMPRESSION: There is no hemorrhage, mass effect, or evidence of acute territorial ischemia by CT criteria. ACT 112: Negative or not required by law. Electronically signed by: Brijesh Cristina M.D. 05/29/2021 2:43 PM Dictated:05/29/21 1440 Transcribed: 05/29/211439 Hospital Course (1) Visual hallucinations: Present on admission with visual hallucination after discharge from [facility] for CT abdomen of a leaking abdominal aortic aneurysm Possible related to post general anesthesia effect versus hypertensive urgency versus hyponatremia CT head showed no acute intracranial abnormality MRI showed no acute intracranial finding EEG shows no seizure activity Carotid ultrasound showed findings suggestive of 50-69% stenosis of the proximal left internal carotid artery. Moderate atherosclerotic plaque. Echo showed mild LVH. No LV wall motion abnormality. Ejection fraction 55 to 60% Neuro on board recommend to continue dual antiplatelet with Plavix and aspirin We will get a CTA of the head and neck Denies any focal neuro deficit Resolved (2) Hypertensive urgency: BP markedly elevated on presentation to the ED at 236/85 Compliant with BP meds HCTZ increased to 25 mg Continue lisinopril 40 mg and metoprolol 12.5 mg twice daily Consider to add amlodipine if BP continue to elevate Received IV labetalol on admission BP improved Continue as needed BP meds Continue monitor BP (3) Carotid stenosis: s/p right CEA. Most recent carotid duplex in May 2020 showed less than 50% stenosis of right ICA, 50-69% stenosis of left ICA. Carotid ultrasound showed findings suggestive of 50-69% stenosis of the proximal left internal carotid artery. Moderate atherosclerotic plaque. Asymptomatic (4) Type 2 diabetes mellitus: A1c on 05/26/21 was 9.0 Continue Lantus and insulin sliding scale Continue monitor BMP (5) Dyslipidemia: Total cholesterol 147, triglyceride 148, LDL 82, and HDL 35 Continue statin (6) PAD (peripheral artery disease): Continue anti-platelets (ASA/Plavix) (7) S/P AAA repair: Continue metoprolol, lisinopril, Plavix and aspirin Outpatient follow-up with vascular surgery DVT Prophylaxis: SCDs due to recent AAA endoleak repair and patient ambulated Code Status: Full code Total Time Total Time Spent Total Time Spent (In Minutes): 35 minutes Discharge Plan Discharge Items Patient Disposition: Home - Self-Care Reason For Visit: VISUAL CHANGES, HYPERTENSIVE URGENCY Discharge Diagnosis: Visual hallucinations: Hypertensive urgency: Carotid stenosis: Type 2 diabetes mellitus: Dyslipidemia: PAD (peripheral artery disease): S/P AAA repair: Activity: Resume your previous activity Non-emergency contact: Primary Care Provider Call non-emergency contact if: you have any medication questions Follow-up/Referrals: Bautista Jennings MD [Primary Care Provider] - (Date & Time 06/06/2021 2:20 PM Provider Bautista Jennings MD Department [facility] ) Diet: Heart Healthy Addtl Attending Provider Instructions: Follow with your primary care provider Dr. Baum on 06/06/2021 @2:20 PM at the [facility] Follow up with neurology Dr. Morse or her colleagues in 4 to 6 weeks Follow up with your vascular surgery to monitor the left carotid artery stenosis Follow up CTA of the head in 6 months to be performed by primary care to further evaluate the possible intracranial infundibulum versus tiny aneurysm Please hold metformin for today and tomorrow due to contrast received for the CAT scan. OK to resume on Wednesday Hydrochlorothiazide increased to 25mg daily Continue monitor your blood pressure and bring your blood pressure at your next follow up visit with your provider Amlodipine 2.5 mg added for your blood pressure ( your provider can increase it to 5 mg if blood pressure continues to elevate) Fall precaution Pending Studies at Discharge: No Stand-Alone Forms: My [facility], Smoking Cessation Medications and DC Order Prescriptions: New hydrochlorothiazide 25 mg Tablet 25 mg PO QAM 30 Days Qty: 30 RF: 0 amlodipine 2.5 mg tablet 2.5 mg PO DAILY Qty: 30 RF: 0 Continued atorvastatin [Lipitor] 40 mg tablet 40 mg PO DAILY RF: 0 clopidogrel [Plavix] 75 mg tablet 75 mg PO DAILY RF: 0 fexofenadine [[place]enia Allergy] 180 mg Tablet 180 mg PO QAM PRN (Reason: Allergy Symptoms) RF: 0 aspirin 81 mg Tablet,Delayed Release (Dr/Ec) 81 mg PO DAILY RF: 0 nitroglycerin [Nitrostat] 0.4 mg Tablet, Sublingual 0.4 mg sublingual Q5M MDD 1.2 mg PRN (Reason: Chest Pain) RF: 0 insulin aspart U-100 [Novolog Flexpen U-100 Insulin] 100 unit/mL (3 mL) insulin pen 20 unit SUBCUT QDL RF: 0 insulin aspart U-100 [Novolog Flexpen U-100 Insulin] 100 unit/mL (3 mL) insulin pen 14 unit SUBCUT QDD RF: 0 insulin aspart U-100 [Novolog Flexpen U-100 Insulin] 100 unit/mL (3 mL) insulin pen 11 unit SUBCUT QDB RF: 0 metoprolol tartrate 25 mg tablet 12.5 mg PO BID RF: 0 Basaglar KwikPen U-100 Insulin 100 unit/mL (3 mL) insulin pen 35 unit SUBCUT HS RF: 0 lisinopril 40 mg tablet 40 mg PO DAILY RF: 0 metformin 1,000 mg tablet 1,000 mg PO BID RF: 0 Discontinued hydrochlorothiazide 12.5 mg capsule 12.5 mg PO DAILY RF: 0 Discharge Orders: Discharge Order (Routine); Ordered 05/31/21 Ordered By: Antoinette Danielson Admission Data Admit Date/Time: 05/29/21 18:22 Attending Provider: Antoinette Danielson Admit Provider: Antoinette Danielson Primary Care Provider: Bautista Jennings Other Providers: Antoinette Danielson ; Marky Marrufo Other Interventions: Discharge Summary Assessment (RN) Last Done: 05/31/21 12:28
== END 2021-05-31 13:52 | disposition home or self-care (01) ==
LOC: ED 13:59 → EDINP 13:59 → 2S 23:15